=== PATIENT | female | born 1925 | race Caucasian/White ===

== ENCOUNTER 2016-02-27 10:43 | Outpatient (CLI) | payer MEDICARE | END 2016-02-27 10:44 | disposition home or self-care (01) | DX: I50.9 Heart failure, unspecified (principal); I51.7 Cardiomegaly; R60.9 Edema, unspecified ==

== ENCOUNTER 2016-09-05 00:59 | Outpatient (CLI) | payer MEDICARE | END 2016-09-05 01:00 | disposition critical access hospital (66) | LOC: EMS 00:59 | PROVIDERS: ATTEND Surgery | DX: Z03.89 Encounter for observation for other suspected diseases and conditions ruled out (principal); Z79.01 Long term (current) use of anticoagulants; W18.39XA Other fall on same level, initial encounter; Y92.098 Other place in other non-institutional residence as the place of occurrence of the external cause | CPT/HCPCS: A0425; A0429 ==

== ENCOUNTER 2016-09-05 01:14 | Inpatient (IN) | payer MEDICARE ==
[2016-09-05 02:19] LABS: BASOPHILS # (AUTO) 0.1 10^3/uL (0.0-0.1); BASOPHILS % (AUTO) 0.8 %; EOSINOPHILS # (AUTO) 0.2 10^3/uL (0.0-0.7); EOSINOPHILS % (AUTO) 2.5 %; HCT - HEMATOCRIT 33.1 % (37.0-47.0); HGB - HEMOGLOBIN 11.4 g/dL (12.0-16.0); LYMPHOCYTES # (AUTO) 0.7 10^3/uL (1.5-3.5); LYMPHOCYTES % (AUTO) 10.8 %; MEAN CORPUSCULAR HEMOGLOBIN 31.4 pg (27.0-31.0); MEAN CORPUSCULAR HGB CONC 34.5 g/dL (32.0-36.0); MEAN PLATELET VOLUME 7.8 fL (7.9-10.8); MONOCYTES # (AUTO) 0.6 10^3/uL (0.0-1.0); MONOCYTES % (AUTO) 9.3 %; NEUTROPHILS # (AUTO) 5.1 10^3/uL (1.5-6.6); NEUTROPHILS % (AUTO) 76.6 %; NUCLEATED RED BLOOD CELLS AUTO 0.1 /100WBC; RED BLOOD COUNT 3.64 10^6/uL (4.20-5.40); RED CELL DISTRIBUTION WIDTH 15.3 % (12.0-15.0); UNCORRECTED WHITE BLOOD COUNT 6.7 x10^3/uL; WHITE BLOOD COUNT 6.7 x10^3/uL (4.8-10.8)
--- NOTE | 2016-09-05 02:22 | CT Preliminary Report ---
Exam: CT Head W/O IMPRESSION: Generalized age-related cortical atrophic changes without evidence of acute intracranial abnormality. [facility] SITE ID: [id number]
--- NOTE | 2016-09-05 02:23 | XRAY Preliminary Report ---
Exam: XR Chest 1 View IMPRESSION: 1. Cardiomegaly and pulmonary vascular congestion. [facility] SITE ID: [id number]
--- NOTE | 2016-09-05 02:24 | CT Report ---
EXAM: CT HEAD EXAM DATE: 09/05/2016 01:48 AM. CLINICAL HISTORY: Fall on Pradaxa, headache. COMPARISON: 06/16/2015. TECHNIQUE: Multiaxial CT images were obtained from the foramen magnum to the vertex. IV contrast: Non e. Reformats: Coronal. In accordance with CT protocol optimization, one or more of the following dose reduction techniques w ere utilized for this exam: automated exposure control, adjustment of mA and/or KV based on patient s ize, or use of iterative reconstructive technique. FINDINGS: Parenchyma: No intraparenchymal hemorrhage. No evidence of mass, midline shift, or CT findings of acu te infarction. Wells-white differentiation is distinct. Extraaxial Spaces: Normal for age. No subdural or epidural collections identified. Ventricles: The ventricles and cortical sulci are enlarged, consistent with age-related tissue loss. Sinuses: Imaged paranasal sinuses, orbits, and mastoids show no significant abnormality. Bones: No evidence of fracture or calvarial defect. Other: Diffuse chronic microangiopathic white matter changes are evident. No change since the prior study. IMPRESSION: Generalized age-related cortical atrophic changes without evidence of acute intracranial abnormality. [facility] Referring Provider Line: [phone] SITE ID: [id number]
[2016-09-05 02:25] LABS: BILIRUBIN,URINE NEGATIVE (NEGATIVE)
--- NOTE | 2016-09-05 02:25 | XRAY Report ---
EXAM: CHEST RADIOGRAPHY EXAM DATE: 09/05/2016 01:41 AM. CLINICAL HISTORY: Congestive heart failure. Fell backwards. COMPARISON: 02/27/2016. TECHNIQUE: 1 view. FINDINGS: Lungs/Pleura: Pulmonary vascular congestion. No alveolar consolidation or pleural effusion. No pneumo thorax. Mediastinum: Mild cardiomegaly. Tortuous atherosclerotic aorta. Other: Implanted bipolar pacemaker on the left with leads in expected positions. Osteopenia. IMPRESSION: 1. Cardiomegaly and pulmonary vascular congestion. [facility] Referring Provider Line: [phone] SITE ID: [id number]
[2016-09-05 02:26] LABS: ALBUMIN/GLOBULIN RATIO 0.9 (1.0-2.2); CALCIUM 9.5 mg/dL (8.5-10.3); CREATININE 1.3 mg/dL (0.4-1.0); TOTAL PROTEIN 8.3 g/dL (6.7-8.2)
[2016-09-05 02:26] LABS: UA w/ MICROSCOPIC CHARGE YES
--- NOTE | 2016-09-05 02:26 | CT Preliminary Report ---
Exam: CT Cervical Spine W/O IMPRESSION: Degenerative changes in the cervical spine. No fracture is identified. [facility] SITE ID: [id number]
--- NOTE | 2016-09-05 02:28 | CT Report ---
EXAM: CT CERVICAL SPINE WITHOUT CONTRAST DATE: 09/05/2016 02:09 AM HISTORY: Fall with neck pain COMPARISONS: None. TECHNIQUE: Thin-section axial images were acquired of the cervical spine without contrast. Post-proce ssing: Coronal and sagittal reformats. Other: None. In accordance with CT protocol optimization, one or more of the following dose reduction techniques w ere utilized for this exam: automated exposure control, adjustment of mA and/or KV based on patient s ize, or use of iterative reconstructive technique. FINDINGS: Alignment: 2 mm of anterolisthesis at C4-C5 Bones: No fracture or bone lesion. Interspace Levels/Facets: C1-C2: Degenerative change anterior to the dens C2-C3: Moderate bilateral facet osteoarthritis C3-C4: Moderate bilateral facet osteoarthritis C4-C5: Moderate bilateral facet osteoarthritis C5-C6: Severe disk space narrowing. Endplate osteophyte mildly narrows the central canal. Severe bila teral foraminal stenosis. C6-C7: Severe disk space narrowing. C7-T1: Unremarkable. Musculature: Normal. No fatty atrophy. Other: Lung apices are clear. Pacemaker wires in the lower neck IMPRESSION: Degenerative changes in the cervical spine. No fracture is identified. [facility] Referring Provider Line: [phone] SITE ID: [id number]
[2016-09-05 02:40] LABS: UR CULTURE IF IND INDICATED; WBC,URINE 0-3 /HPF (0-5)
[2016-09-05] MEDS ORDERED: POTASSIUM CHLORIDE 20 MEQ TABLET PO STA (02:53)
[2016-09-05] MEDS ORDERED: FUROSEMIDE 20 MG/2 ML VIAL IVP STA (02:54)
[2016-09-05] MEDS ORDERED: POTASSIUM CHLORIDE 20 MEQ TABLET PO ONE (03:08)
[2016-09-05] MEDS ORDERED: FUROSEMIDE 40 MG/4 ML VIAL ONE (03:08)
[2016-09-05] MEDS ORDERED: ONDANSETRON 4 MG/2 ML VIAL IVP PRN (03:34)
[2016-09-05] MEDS ORDERED: SODIUM CHLORIDE FLUSH 0.9% 10 ML SYRINGE IVP PRN (03:34)
[2016-09-05] MEDS ORDERED: ACETAMINOPHEN 325 MG TABLET PO PRN (03:34)
[2016-09-05] MEDS ORDERED: ONDANSETRON ODT 4 MG TABLET TL PRN (03:34)
[2016-09-05] MEDS ORDERED: MAGNESIUM HYDROXIDE 2,400 MG/30 ML UDC PO PRN (03:43)
[2016-09-05] MEDS ORDERED: COLCHICINE 0.6 MG TABLET PO PRN (03:43)
--- NOTE | 2016-09-05 04:39 | ED Physician Documentation ---
History of Present Illness - Stated complaint Stated Complaint: GLF - Chief complaint Chief Complaint: General - History obtained from History obtained from: Patient - Additonal information Additional information: Patient is a pleasant 89-year-old female who currently resides at a local longterm. She is here after having a ground-level fall. The exact circumstances regarding the fall are unknown. She said she was in her normal state of health and said goodbye to family members. She closed the door and then found herself on the floor.Apparently she had a difficult time getting up and laid on the floor for a couple hours. The patient really has no recollection about what happened. She believes she may have fallen straight back but does not know whether she passed out or just had a mechanical fall. At this point in time she does complain of a headache and neck pain. She denies any preceding chest pain, shortness of breath, nausea, vomiting, constipation, diarrhea or lower urinary symptoms. Review of systems: For pertinent positive and negatives in the review of systems please see history of present illness. Otherwise all other systems have been reviewed and are negative. Dragon disclaimer: Parts of this medical record were created using voice recognition technology. Because of the inherent limitations of this system occasional same sounding word substitutions do occur and persist despite proofreading. Please read the document for context. Review of Systems Ten Systems: 10 systems reviewed and negative Constitutional: denies: Fever, Chills, Myalgias Eyes: denies: Loss of vision Cardiac: denies: Chest pain / pressure, Palpitations Respiratory: denies: Dyspnea, Cough GI: denies: Abdominal Pain, Vomiting : denies: Dysuria, Frequency, Hesitancy Musculoskeletal: reports: Neck pain, Back pain Neurologic: reports: Generalized weakness, Focal weakness, Numbness, Difficulty speaking PD PAST MEDICAL HISTORY - Past Medical History Cardiovascular: Congestive heart failure, High cholesterol, Coronary artery disease Respiratory: None Neuro: None GI: GERD : Renal insuffiency HEENT: None Psych: None Derm: None - Past Surgical History Past Surgical History: Yes Ortho: 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: 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 Cardiovascular: Coronary stent, Pacemaker - Present Medications Home Medications: Ambulatory Orders Medication Instructions Recorded Confirmed Dabigatran [Pradaxa] 75 mg PO BID 09/18/12 09/05/16 Furosemide [Lasix] 80 mg PO BID 09/18/12 09/05/16 Digoxin [Lanoxin] 125 mcg PO DAILY 06/16/15 09/05/16 HYDROcod/ACETAM 5/325 [[place] 5/325] 1 tab PO QID 06/16/15 09/05/16 Levothyroxine [Synthroid] 50 mcg PO QDAC 06/16/15 09/05/16 Ropinirole HCl 1 mg PO DAILY 06/16/15 09/05/16 Ropinirole HCl 2 mg PO DAILY 06/16/15 09/05/16 diltiaZEM CD [Cardizem Cd] 120 mg PO TID 06/16/15 09/05/16 hydrALAZINE [Apresoline] 25 mg PO QD 06/16/15 09/05/16 Acetaminophen 650 mg PO Q4H PRN 09/05/16 09/05/16 Calcium Carbonate/Vitamin D3 1 tab ORAL BID 09/05/16 09/05/16 [Calcium 500-Vit D3 200 Tablet] Cholecalciferol (Vitamin D3) 2,000 units ORAL BID 09/05/16 09/05/16 [Vitamin D3] Colchicine 0.6 mg PO BID PRN 09/05/16 09/05/16 Gabapentin 100 mg ORAL BID 09/05/16 09/05/16 Magnesium Hydroxide [Milk of 1,200 mg ORAL DAILY PRN 09/05/16 09/05/16 Magnesia] Metolazone 2.5 mg ORAL DAILY 09/05/16 09/05/16 Potassium Chloride [Klor-Con 10] 10 meq ORAL DAILY 09/05/16 09/05/16 - Allergies Allergies/Adverse Reactions: Allergies Allergy/AdvReac Type Severity Reaction Status Date / Time Sulfa (Sulfonamide Allergy Intermediate Nausea Verified 09/05/16 01:23 Antibiotics) - Social History Does the pt smoke?: No Smoking Status: Never smoker Does the pt drink ETOH?: No Does the pt have substance abuse?: No - Immunizations Immunizations are current?: No Immunizations: TDAP >10years/unknown - POLST Patient has POLST: No PD ED PE NORMAL - General General: Alert and oriented X 3, No acute distress, Well developed/nourished - HEENT HEENT: PERRL, EOMI, Ears normal, Pharynx benign, Other - Neck Neck: Supple, no meningeal sign, Other - Cardiac Cardiac: No gallop, No rub, Other (Irregularly irregular heart with soft blowing murmur) - Respiratory Respiratory: Other (Crackles at the bases bilaterally) - Abdomen Abdomen: Normal bowel sounds, Soft, Non tender, Non distended - Extremities Extremities: No deformity, No tenderness to palpate, Normal ROM s pain, No calf tenderness / cord, Other (Moderate edema bilateral lower extremities all the way up to the posterior thighs bilaterally) - Neuro Neuro: Alert and oriented X 3, dry heat room attendant 2-12 intact, No motor deficit, No sensory deficit Results - Vitals Vitals: Vital Signs - 24 hr 09/05/16 09/05/16 09/05/16 01:15 02:25 03:04 Temperature 36.5 C Heart Rate 92 83 92 Respiratory 16 16 25 H Rate Blood Pressure 113/60 119/72 129/85 H O2 Saturation 95 97 95 09/05/16 04:20 Temperature Heart Rate 105 H Respiratory 20 Rate Blood Pressure 110/79 O2 Saturation 93 Oxygen O2 Source Room air - Labs Labs: Laboratory Tests 09/05/16 09/05/16 09/05/16 02:04 02:04 02:04 WBC 6.7 RBC 3.64 L Hgb 11.4 L Hct 33.1 L MCV 91.0 MCH 31.4 H MCHC 34.5 RDW 15.3 H Plt Count 166 MPV 7.8 L Neut # 5.1 Lymph # 0.7 L [place] # 0.6 Eos # 0.2 Baso # 0.1 Absolute Nucleated RBC 0.00 Nucleated RBCs 0.1 Sodium 131 L Potassium 3.0 L Chloride 89 L Carbon Dioxide 31 Anion Gap 11.0 BUN 70 H Creatinine 1.3 H Estimated GFR (MDRD) 39 L Glucose 108 H Calcium 9.5 Total Bilirubin 1.0 AST 34 ALT 26 Alkaline Phosphatase 235 H Troponin I 0.09 B-Natriuretic Peptide Total Protein 8.3 H Albumin 3.9 Globulin 4.4 H Albumin/Globulin Ratio 0.9 L Lipase 37 Urine Color Urine Clarity Urine pH Ur Specific [place] Urine Protein Urine Glucose (UA) Urine Ketones Urine Occult Blood Urine Nitrite Urine Bilirubin Urine Urobilinogen Ur Leukocyte Esterase Urine RBC Urine WBC Ur Squamous Epith Cells Urine Bacteria Ur Microscopic Review Urine Culture Comments Last Dose Date Last Dose Time Digoxin 09/05/16 09/05/16 09/05/16 02:04 02:04 02:15 WBC RBC Hgb Hct MCV MCH MCHC RDW Plt Count MPV Neut # Lymph # [place] # Eos # Baso # Absolute Nucleated RBC Nucleated RBCs Sodium Potassium Chloride Carbon Dioxide Anion Gap BUN Creatinine Estimated GFR (MDRD) Glucose Calcium Total Bilirubin AST ALT Alkaline Phosphatase Troponin I B-Natriuretic Peptide 638 H Total Protein Albumin Globulin Albumin/Globulin Ratio Lipase Urine Color YELLOW Urine Clarity HAZY Urine pH 7.0 Ur Specific [place] 1.010 Urine Protein NEGATIVE Urine Glucose (UA) NEGATIVE Urine Ketones NEGATIVE Urine Occult Blood SMALL H Urine Nitrite POSITIVE H Urine Bilirubin NEGATIVE Urine Urobilinogen 0.2 (NORMAL) Ur Leukocyte Esterase NEGATIVE Urine RBC 0-5 Urine WBC 0-3 Ur Squamous Epith Cells FEW Squamous Urine Bacteria Moderate H Ur Microscopic Review INDICATED Urine Culture Comments INDICATED Last Dose Date 09/04/16 Last Dose Time 0800 Digoxin 0.7 PD MEDICAL DECISION MAKING - ED course Complexity details: reviewed old records, reviewed results, re-evaluated patient , considered differential, d/w patient, d/w device sales consultant ED course: Patient is a pleasant 89-year-old female who is a resident of the local longterm. The patient fell tonight it is unclear exactly what happened and whether this might have been syncope versus mechanical fall. From an injury standpoint the patient really does not have any significant findings of injury and her head but did have mild neck tenderness. For this reason a CT scan of the head and neck were performed. The CT scan of head shows age-related changes. The CT scan of the neck shows arthritis but no evidence of bony fracture dislocation. Clinically on evaluation the patient appear to be in mild decompensated congestive heart failure. She had moderate pedal edema up into the posterior thighs bilaterally and obvious JVD that was noticeable on physical exam. She also crackles on auscultation of her lungs. Chest x-ray shows moderate to severe cardiomegaly with a hint of pulmonary vascular congestion. EKG on this patient demonstrates atrial fibrillation at 82 bpm the QRS and QT intervals are normal. There is no obvious ST segment elevation, depression or T-wave inversion.There are a few discretePVCs present. Blood work on this patient shows elevation of the BUN to creatinine ratio at 70 and 1.3. Her BNP is mildly elevated and her potassium is 3.0. Patient's CBC and urinalysis are normal. This patient clinically is in mild decompensated congestive heart failure and this finding is reflected radiographically and in her laboratory values. She is given 40 mg of potassium orally and also a small dose of Lasix. The case was discussed with the hospitalist service who came down promptly to evaluate the patient for admission. We felt that this patient might benefit from a little gentle diuresis and potassium repletion. Disposition: Admission to the hospital Clinical impression: 1. Fall-mechanical versus syncope 2. Acute decompensated congestive heart failure 3. Hypokalemia 4. Chronic atrial fibrillation Departure - Departure Disposition: [facility] DC/Xfer
--- NOTE | 2016-09-05 05:16 | HISTORY & PHYSICAL EXAMINATION ---
Chief Complaint - Chief Complaint Chief Complaint: Syncope, acute exacerbation heart failure Chest Pain Admission HPI - Admitted From Admitted from: ED - History Obtained From Records Reviewed: Old records reviewed History obtained from: Patient, Other (Records) Exam limitations: Other (Impaired memory) - History of Present Illness HPI Comment/Other: 89-year-old, white female presenting to the emergency department by EMS tonight for an unwitnessed syncopal episode. She has chronic atrial fibrillation and is anticoagulated with pradaxa. She reports saying goodbye to her children, closing the door, turning around and then waking up lying on the floor. She was able to use her fall alert necklace to notify staff at [facility]. She denies preceding chest pain, shortness of breath, dizziness, diaphoresis, nausea or vomiting. Her recollection of the event is vague. In the ED a Head and Neck CT is completed and negative. She has no complaints of new pain. She does have chronic heart failure and she has noticed increased swelling to her lower extremities over the past few weeks but has not seen her PCP. Chest x-ray impression per radiologist states cardiomegaly with pulmonary vascular congestion. She received 40 mg IV lasix in the ED for acute exacerbation of her chronic right sided heart failure. Echo completed 06/15/16 showed ejection fraction 60%. 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: Miscarriage(s) : positive: Incontinence, Renal insuffiency HEENT: positive: None Psych: positive: None Musculoskeletal: positive: Gout (Right great toe) Derm: positive: Other (Yeast infection (groin)) MRSA Hx?: No - Past Surgical History General: positive: Appendectomy Ortho: positive: Spine surgery /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 Meds/Allgy - Home Medications Home Medications: Ambulatory Orders Medication Instructions Recorded Confirmed Dabigatran [Pradaxa] 75 mg PO BID 09/18/12 09/05/16 Furosemide [Lasix] 80 mg PO BID 09/18/12 09/05/16 Digoxin [Lanoxin] 125 mcg PO DAILY 06/16/15 09/05/16 HYDROcod/ACETAM 5/325 [[place] 5/325] 1 tab PO QID 06/16/15 09/05/16 Levothyroxine [Synthroid] 50 mcg PO QDAC 06/16/15 09/05/16 Ropinirole HCl 1 mg PO DAILY 06/16/15 09/05/16 Ropinirole HCl 2 mg PO DAILY 06/16/15 09/05/16 diltiaZEM CD [Cardizem Cd] 120 mg PO TID 06/16/15 09/05/16 hydrALAZINE [Apresoline] 25 mg PO QD 06/16/15 09/05/16 Acetaminophen 650 mg PO Q4H PRN 09/05/16 09/05/16 Calcium Carbonate/Vitamin D3 1 tab ORAL BID 09/05/16 09/05/16 [Calcium 500-Vit D3 200 Tablet] Cholecalciferol (Vitamin D3) 2,000 units ORAL BID 09/05/16 09/05/16 [Vitamin D3] Colchicine 0.6 mg PO BID PRN 09/05/16 09/05/16 Gabapentin 100 mg ORAL BID 09/05/16 09/05/16 Magnesium Hydroxide [Milk of 1,200 mg ORAL DAILY PRN 09/05/16 09/05/16 Magnesia] Metolazone 2.5 mg ORAL DAILY 09/05/16 09/05/16 Potassium Chloride [Klor-Con 10] 10 meq ORAL DAILY 09/05/16 09/05/16 - Allergies Allergies/Adverse Reactions: Allergies Allergy/AdvReac Type Severity Reaction Status Date / Time Sulfa (Sulfonamide Allergy Intermediate Nausea Verified 09/05/16 01:23 Antibiotics) Review of Systems - Constitutional Constitutional: denies: Fatigue, Fever, Chills, Diaphoresis - Eyes Eyes: reports: Corrective lenses (at home) - Ears, Nose & Throat Ears, Nose & Throat: reports: Dentures (upper and lower) - Cardiovascular Cariovascular: reports: Irregular heart rate, Edema (Increased to lower extremities), Syncope, Exertional dyspnea. denies: Chest pain, Orthopnea - Respiratory Respiratory: reports: Cough (nonproductive), SOB with exertion - Genitourinary Genitourinary: reports: Incontinence - Musculoskeletal Musculoskeletal: reports: Gout - Integumentary Integumentary: reports: Pruritis - Neurological Neurological: reports: Memory problems - All Other Systems All Other Systems: reports: Reviewed and negative Exam - Vital Signs Reviewed Vital Signs: Yes Vital Signs: Vital Signs x48h Pulse Resp BP Pulse Ox 09/05/16 04:20 105 H 20 110/79 93 - Physical Exam General Appearance: positive: Alert, Other (Mild tachypnea with activity in the stretcher.) Eyes Bilateral: positive: Normal inspection ENT: positive: ENT inspection nml, Pharynx nml Neck: positive: Trachea midline (JVD present. No neck tenderness.) Respiratory: positive: Chest non-tender, Other (Diminished to bilateral lower lung brady with faint crackles in right lower field. Increased respiratory rate with activity.) Cardiovascular: positive: Irregularly irregular, PMI displaced laterally, JVD present, Decreased pulse(s) Peripheral Pulses: positive: 1+ Abdomen: positive: Non-tender, Nml bowel sounds, Hepatomegaly, Other (Distended) Back: positive: Other (Scratch loza to lower back and right buttocks.) Skin: positive: Warm, Dry Extremities: positive: Pedal edema (3+ pitting edema from ankle to knee bilaterally. Non-pitting edema from knee to mid-thigh.), Other ([place] discoloration to bilateral LE ankle to mid-[place].) Neurologic/Psychiatric: positive: Mood/affect nml, Disoriented to time, Weakness Results - Lab Results Fish Bones: 09/05/16 02:04 09/05/16 02:04 CP/CHF Plan - Echo Plan to order an echo?: Yes - Plan Patient Problems: All Active Problems Atrial fibrillation, chronic (Acute) Chronic renal insufficiency (Acute) Chronic right-sided congestive heart failure (Acute) Syncopal episodes (Acute) Urinary tract infection (Acute) Cellulitis of both lower extremities (Acute) Fluid overload (Acute) Gout (Acute) Hypokalemia (Acute) Intractable pain (Acute) Iron deficiency anemia (Acute) Pacemaker (Acute) Sepsis (Acute)
[2016-09-05] MEDS: CIPROFLOXACIN 250 MG TABLET PO SCH ×2 (05:31→21:30)
[2016-09-05] MEDS: SODIUM CHLORIDE FLUSH 0.9% 10 ML SYRINGE IVP SCH ×3 (05:46→21:13)
[2016-09-05] MEDS: hydrALAZINE 25 MG TABLET PO SCH (05:46)
--- NOTE | 2016-09-05 06:38 | HISTORY & PHYSICAL EXAMINATION ---
Chief Complaint - Chief Complaint Chief Complaint: Syncope History of Present Illness - Admitted From Admitted From:: Emergency Department - History Obtained From Records Reviewed: [facility] History obtained from: Patient Exam Limitations: Memory - History of Present Illness HPI Comment/Other: 89-year-old, white female presenting to the emergency department by EMS tonight for an unwitnessed syncopal episode. She has chronic atrial fibrillation and is anticoagulated with pradaxa. She reports saying goodbye to her children, closing the door, turning around and then waking up lying on the floor. She was able to use her fall alert necklace to notify staff at [facility]. She denies preceding chest pain, shortness of breath, dizziness, diaphoresis, nausea or vomiting. Her recollection of the event is vague. In the ED a Head and Neck CT is completed and negative. She has no complaints of new pain. She does have chronic heart failure and she has noticed increased swelling to her lower extremities over the past few weeks but has not seen her PCP. Chest x-ray impression per radiologist states cardiomegaly with pulmonary vascular congestion. She received 40 mg IV lasix in the ED for acute exacerbation of her chronic right sided heart failure. Echo completed 06/15/16 showed ejection fraction 60%. The ED physician requested admission due to the acute exacerbation. Review of Systems - Constitutional Constitutional: denies: Fatigue, Fever, Chills, Malaise, Diaphoresis - Eyes Eyes: reports: Corrective lenses (at home) - Ears, Nose & Throat Ears, Nose & Throat: reports: Dentures (upper and lower) - Cardiovascular Cariovascular: reports: Irregular heart rate, Edema (lower extremities.), Syncope, Exertional dyspnea. denies: Palpitations, Chest pain, Lightheadedness , Orthopnea - Respiratory Respiratory: reports: Cough (non productive). denies: Sputum production, Orthopnea, SOB at rest - Gastrointestinal Gastrointestinal: denies: Abdominal pain, Constipation, Diarrhea, Black stools, Bloody stools, Nausea, Vomiting - Genitourinary Genitourinary: reports: Incontinence - Musculoskeletal Musculoskeletal: reports: Muscle weakness, Gout (Right first toe.) - Integumentary Integumentary: reports: Pruritis - Neurological Neurological: reports: Memory problems (short-term) - All Other Systems All Other Systems: reports: Reviewed and negative History - Past Medical History Cardiovascular: reports: Congestive heart failure (Preserved Ejection Fraction, Right sided ), High cholesterol, Coronary artery disease, Atrial fibrillation ( rate controlled, anticoagulated) Respiratory: reports: None Neuro: reports: None, Other (Restless leg syndrome) Endocrine/Autoimmune: reports: HyPOthyroidism GI: reports: GERD, Hemorrhoids 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 EXECUTIVE ASSISTANT: reports: Miscarriage(s) : reports: Incontinence, Renal insuffiency HEENT: reports: None Psych: reports: None Musculoskeletal: reports: Gout (Right great toe) Derm: reports: Other (Yeast infection (groin)) MRSA Hx?: No - Past Surgical History General: reports: Appendectomy Ortho: reports: Spine surgery /BILINGUAL EXECUTIVE ASSISTANT: reports: 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 Cardiovascular: reports: Coronary stent, Pacemaker - Family & Social History Family History: Mother: (age 92), Father: , [place], Sister: Alive and Well (daughter - hepatitis C), Brother: Alive and Well, Other family: Alive and Well Living arrangement: Assisted living (Formerly [facility]) Living Situation: With caregiver(s) Social History Notes: Patient has lived in an assisted care facility for the past year, she lives independently in her room with assistance for her medications and all meals. She has been x 2 years. Her 2 daughters and son live on [facility], her children and grandchildren come to visit her occasionally. She affiliated with the [email or web address] but has been unable to attend since moving to [facility]. 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 - Substance History Use: Uses substance without health or social issues: NONE Abuse: Recurrent use of substance despite neg consequences: NONE Dependence: Experiences withdrawal or developed tolerances: NONE - POLST Patient has POLST: No POLST Status: DNR Meds/Allgy - Home Medications Home Medications: Ambulatory Orders Medication Instructions Recorded Confirmed Dabigatran [Pradaxa] 75 mg PO BID 09/18/12 09/05/16 Furosemide [Lasix] 80 mg PO BID 09/18/12 09/05/16 Digoxin [Lanoxin] 125 mcg PO DAILY 06/16/15 09/05/16 HYDROcod/ACETAM 5/325 [[place] 5/325] 1 - 2 tab PO Q4H PRN 06/16/15 09/05/16 Levothyroxine [Synthroid] 50 mcg PO QDAC 06/16/15 09/05/16 Ropinirole HCl 1 mg PO DAILY 06/16/15 09/05/16 Ropinirole HCl 2 mg PO QPM 06/16/15 09/05/16 hydrALAZINE [Apresoline] 25 mg PO QD 06/16/15 09/05/16 Acetaminophen 650 mg PO Q4H PRN 09/05/16 09/05/16 Calcium Carbonate/Vitamin D3 1 tab ORAL BID 09/05/16 09/05/16 [Calcium 500-Vit D3 200 Tablet] Chlorhexidine Gluconate 15 ml MM DAILY 09/05/16 09/05/16 Cholecalciferol (Vitamin D3) 2,000 units ORAL BID 09/05/16 09/05/16 [Vitamin D3] Colchicine 0.6 mg PO BID PRN 09/05/16 09/05/16 Diltiazem HCl 120 mg PO TID 09/05/16 09/05/16 Gabapentin 100 mg ORAL BID 09/05/16 09/05/16 Magnesium Hydroxide [Milk of 1,200 mg ORAL DAILY PRN 09/05/16 09/05/16 Magnesia] Metolazone 2.5 mg ORAL DAILY 09/05/16 09/05/16 Potassium Chloride [Klor-Con 10] 10 meq ORAL DAILY 09/05/16 09/05/16 - Allergies Allergies/Adverse Reactions: Allergies Allergy/AdvReac Type Severity Reaction Status Date / Time Sulfa (Sulfonamide Allergy Intermediate Nausea Verified 09/05/16 01:23 Antibiotics) Exam - Vital Signs Reviewed Vital Signs: Yes Vital Signs: Vital Signs x48h Temp Pulse Pulse Resp BP BP Pulse Ox 09/05/16 05:26 36.7 C 103 H 16 111/73 95 09/05/16 04:20 105 H 20 110/79 93 - Physical Exam General Appearance: positive: No acute distress, Alert Eyes Bilateral: positive: Normal inspection, PERRL ENT: positive: ENT inspection nml Neck: positive: Trachea midline Respiratory: positive: Chest non-tender, Other (Diminished breath sounds to lower lung brady bilaterally, fine crackles to right lower field.) Cardiovascular: positive: Irregularly irregular, PMI displaced laterally, JVD present, Decreased pulse(s) Peripheral Pulses: positive: 1+ (Radial and pedal) Abdomen: positive: Non-tender, Nml bowel sounds, Hepatomegaly, Other (edematous/ distended.) Back: positive: Other (Scratches to lumbar region and right buttocks.) Skin: positive: Color nml, Warm, Dry Extremities: positive: Pedal edema (2+ pitting edema ankle-knee. Non-pitting edema from knee-mid thigh.) Neurologic/Psychiatric: positive: Motor nml, Sensation nml, Mood/affect nml, Disoriented to time Conclusion/Plan - Problem List (1) Syncopal episodes Conclusion/Plan: Unwitnessed syncopal episode, patient is unable to recall specifics of the event. Denies prodrome, chest pain, dark stools, or neuro deficits. Head and Neck CT negative. Diferential considered is Aortic stenosis but no history on previous ECHO and no harsh systolic murmur, arrhythmia for which tele is ordered , orthostatic syncope but history lends more to sudden syncope not symptoms of orthostasis. Troponin was negative. * Echocardiogram 09/05/2016 * Telemetry * Monitor daily CBC, BMP. Qualifiers: Syncope type: unspecified Qualified Code(s): R55 - Syncope and collapse (2) Chronic right-sided congestive heart failure Conclusion/Plan: Acute exacerbation of chronic right-sided heart failure, systolic; last echocardiogram 05/2015 with LVEF 60%. * Echocardiogram 09/05/2016. * Diurese - 40 mg IV lasix twice daily. * Daily BtNP * Daily weights, intake and output * Low sodium diet (2 gm) (3) Urinary tract infection Conclusion/Plan: Uncomplicated urinary tract infection. * Empirically treat with ciprofloxacin 250 mg orally twice daily. * Await pending culture and sensitivity from urine specimen and adjust therapy as indicated. Qualifiers: Urinary tract infection type: acute cystitis Hematuria presence: with hematuria Qualified Code(s): N30.01 - Acute cystitis with hematuria (4) Hypokalemia Conclusion/Plan: Attributed to daily furosemide use. * 40 meq KCl orally once 09/05/16. * Continue home potassium: 10 meq oral daily. * Daily BMP. (5) Atrial fibrillation, chronic Conclusion/Plan: Rate controlled, anticoagulated with Dabigatran (Pradaxa). * Telemetry * Continue home medications. (6) Chronic renal insufficiency Conclusion/Plan: Chronic stable renal insufficiency. * Daily BMP to monitor status. Qualifiers: Chronic kidney disease stage: stage 3 (moderate) Qualified Code(s): N18.3 - Chronic kidney disease, stage 3 (moderate) - Lab Results Fish Bones: 09/05/16 02:04 09/05/16 02:04 Issues/Core Measures - Anticipated LOS Anticipated Stay Length: 2 or more midnights - DVT/VTE - Prophylaxis VTE/DVT Device ordered at admit?: Yes VTE/DVT Prophylaxis med ordered at admit?: No Not Ordered - Medical Reason: Not indicated (anticoagulated.)
[2016-09-05] MEDS: LEVOTHYROXINE 25 MCG TABLET PO SCH (06:41)
[2016-09-05] MEDS: diltiaZEM CD 120 MG CAPSULE PO SCH ×3 (06:41→21:29)
[2016-09-05] MEDS ORDERED: POTASSIUM CHLORIDE 10 MEQ CAPSULE PO SCH (08:00)
[2016-09-05] MEDS ORDERED: FUROSEMIDE 40 MG/4 ML VIAL IVP SCH (09:00)
[2016-09-05 09:13] LABS: THYROID STIMULATING HORMONE 3.35 uIU/mL (0.34-5.60)
[2016-09-05] MEDS: rOPINIRole 1 MG TABLET PO SCH (10:03)
[2016-09-05] MEDS: HYDROcod/ACETAM 5/325 MG TABLET PO PRN ×2 (10:04→14:12)
[2016-09-05] MEDS: GABAPENTIN 100 MG CAPSULE PO SCH ×2 (10:04→21:29)
[2016-09-05] MEDS: DIGOXIN 125 MCG TABLET PO SCH (10:04)
[2016-09-05] MEDS: POLYETHYLENE GLYCOL 3350 17 GM PACKET PO SCH (10:05)
[2016-09-05] MEDS: DABIGATRAN 75 MG CAPSULE PO SCH ×2 (10:07→21:26)
[2016-09-05] MEDS ORDERED: LIDOCAINE PATCH 5% TOP PRN (14:18)
--- NOTE | 2016-09-05 14:25 | PROVIDER PROGRESS NOTE ---
Subjective - Prog Note Date Prog Note Date: 09/05/16 (followup for syncope and collapse) Prog Note Time: 14:22 - Subjective Pt reports feeling: Improved, No change Subjective: Patient was seen at bedside. She is up and ambulating with PT with walker. She is able to move with assist. She denies dizziness or lightheadedness. No nausea or vomiting. no chest pain or shortness of breath Current Medications - Current Medications Current Medications: Patient History Medication Instructions Recorded Confirmed Dabigatran [Pradaxa] 75 mg PO BID 09/18/12 09/05/16 Furosemide [Lasix] 80 mg PO BID 09/18/12 09/05/16 Digoxin [Lanoxin] 125 mcg PO DAILY 06/16/15 09/05/16 HYDROcod/ACETAM 5/325 [[place] 5/325] 1 - 2 tab PO Q4H PRN 06/16/15 09/05/16 Levothyroxine [Synthroid] 50 mcg PO QDAC 06/16/15 09/05/16 Ropinirole HCl 1 mg PO DAILY 06/16/15 09/05/16 Ropinirole HCl 2 mg PO QPM 06/16/15 09/05/16 hydrALAZINE [Apresoline] 25 mg PO QD 06/16/15 09/05/16 Acetaminophen 650 mg PO Q4H PRN 09/05/16 09/05/16 Calcium Carbonate/Vitamin D3 1 tab ORAL BID 09/05/16 09/05/16 [Calcium 500-Vit D3 200 Tablet] Chlorhexidine Gluconate 15 ml MM DAILY 09/05/16 09/05/16 Cholecalciferol (Vitamin D3) 2,000 units ORAL BID 09/05/16 09/05/16 [Vitamin D3] Colchicine 0.6 mg PO BID PRN 09/05/16 09/05/16 Diltiazem HCl 120 mg PO TID 09/05/16 09/05/16 Gabapentin 100 mg ORAL BID 09/05/16 09/05/16 Magnesium Hydroxide [Milk of 1,200 mg ORAL DAILY PRN 09/05/16 09/05/16 Magnesia] Metolazone 2.5 mg ORAL DAILY 09/05/16 09/05/16 Potassium Chloride [Klor-Con 10] 10 meq ORAL DAILY 09/05/16 09/05/16 Objective - Vital Signs/Intake & Output Reviewed Vital Signs: Yes Vital Signs: Vital Signs x48h Temp Pulse Pulse Resp BP BP Pulse Ox 09/05/16 13:29 36.3 C L 100 18 95/54 L 96 09/05/16 12:05 68 102/65 09/05/16 08:17 36.7 C 93 22 102/65 95 Pulse Ox 09/05/16 13:29 09/05/16 12:05 95 09/05/16 08:17 Intake & Output: Intake & Output 09/02/16 09/03/16 09/04/16 09/05/16 23:59 23:59 23:59 23:59 Intake Total 900 Balance 900 - Objective General Appearance: positive: No acute distress, Alert Eyes Bilateral: positive: Normal inspection, PERRL ENT: positive: ENT inspection nml, Pharynx nml, No signs of dehydration Neck: positive: Thyroid nml, No JVD, Trachea midline Respiratory: positive: No respiratory distress, Breath sounds nml Cardiovascular: positive: Regular rate & rhythm, No murmur, No gallop. negative : JVD present Abdomen: positive: Non-tender, No distention. negative: Guarding, Rebound Back: positive: Nml inspection. negative: CVA tenderness (R), CVA tenderness (L ) Skin: positive: Color nml, No rash, Warm, Dry Extremities: positive: Full ROM. negative: Calf tenderness, Joint swelling, Kimberley's sign/cords Neurologic/Psychiatric: positive: Oriented x3, Motor nml, Sensation nml, Mood/ affect nml - Lab Results Fish Bones: 09/05/16 02:04 09/05/16 02:04 Other Labs: Abnormal Lab Results 09/05/16 09/05/16 09/05/16 02:04 02:04 02:04 RBC 3.64 10^6/uL L 10^6/uL (4.20-5.40) Hgb 11.4 g/dL L g/dL (12.0-16.0) Hct 33.1 % L % (37.0-47.0) MCH 31.4 pg H pg (27.0-31.0) RDW 15.3 % H % (12.0-15.0) MPV 7.8 fL L fL (7.9-10.8) Lymph # 0.7 10^3/uL L 10^3/uL (1.5-3.5) Sodium 131 mmol/L L mmol/L (135-145) Potassium 3.0 mmol/L L mmol/L (3.5-5.0) Chloride 89 mmol/L L mmol/L (101-111) BUN 70 mg/dL H mg/dL (6-20) Creatinine 1.3 mg/dL H mg/dL (0.4-1.0) Estimated GFR (MDRD) 39 L (>89) Glucose 108 mg/dL H mg/dL (70-100) Alkaline Phosphatase 235 IU/L H IU/L (42-121) B-Natriuretic Peptide 638 pg/mL H pg/mL (5-100) Total Protein 8.3 g/dL H g/dL (6.7-8.2) Globulin 4.4 g/dL H g/dL (2.1-4.2) Albumin/Globulin Ratio 0.9 L (1.0-2.2) Urine Occult Blood Urine Nitrite Urine Bacteria 09/05/16 02:15 RBC Hgb Hct MCH RDW MPV Lymph # Sodium Potassium Chloride BUN Creatinine Estimated GFR (MDRD) Glucose Alkaline Phosphatase B-Natriuretic Peptide Total Protein Globulin Albumin/Globulin Ratio Urine Occult Blood SMALL H (NEGATIVE) Urine Nitrite POSITIVE H (NEGATIVE) Urine Bacteria Moderate /HPF H /HPF (None Seen) Assessment/Plan - Problem List (1) Chronic right-sided congestive heart failure Impression: chronic with acute exacerbation. continue with lasix and monitor potassium levels daily. continue to monitor lung sounds. encourage ambulation and elevate extremities when sitting. continue with blood pressure medications from home. echocardiogram is pending (2) Urinary tract infection Impression: pending for bacterial source with culture. Qualifiers: Urinary tract infection type: acute cystitis Hematuria presence: with hematuria Qualified Code(s): N30.01 - Acute cystitis with hematuria (3) Syncope and collapse Impression: acute. echo is pending. fall precautions. PT evaluation and assistance. monitor and replace electrolytes. telemetry monitoring. (4) Hypokalemia Impression: acute secondary to loss from diuretic usage. continue to monitor electrolytes and replace. potassium 40meq given orally.
[2016-09-05] MEDS ORDERED: NS W/20 MEQ KCL 1,000 ML IV SCH ×2 (17:00)
[2016-09-05] MEDS ORDERED: rOPINIRole 1 MG TABLET PO SCH (21:00)
[2016-09-06] MEDS: HYDROcod/ACETAM 5/325 MG TABLET PO PRN (00:29)
[2016-09-06] MEDS: hydrALAZINE 25 MG TABLET PO SCH (05:28)
[2016-09-06] MEDS: SODIUM CHLORIDE FLUSH 0.9% 10 ML SYRINGE IVP SCH (05:54)
[2016-09-06 06:29] LABS: BASOPHILS # (AUTO) 0.1 10^3/uL (0.0-0.1); BASOPHILS % (AUTO) 0.9 %; EOSINOPHILS # (AUTO) 0.2 10^3/uL (0.0-0.7); EOSINOPHILS % (AUTO) 3.6 %; HCT - HEMATOCRIT 33.1 % (37.0-47.0); HGB - HEMOGLOBIN 11.2 g/dL (12.0-16.0); LYMPHOCYTES # (AUTO) 0.8 10^3/uL (1.5-3.5); LYMPHOCYTES % (AUTO) 13.8 %; MEAN CORPUSCULAR HEMOGLOBIN 31.5 pg (27.0-31.0); MEAN CORPUSCULAR HGB CONC 33.8 g/dL (32.0-36.0); MEAN CORPUSCULAR VOLUME 93.2 fL (81.0-99.0); MEAN PLATELET VOLUME 7.4 fL (7.9-10.8); MONOCYTES # (AUTO) 0.6 10^3/uL (0.0-1.0); NEUTROPHILS # (AUTO) 4.1 10^3/uL (1.5-6.6); NEUTROPHILS % (AUTO) 71.7 %; RED BLOOD COUNT 3.55 10^6/uL (4.20-5.40); RED CELL DISTRIBUTION WIDTH 15.6 % (12.0-15.0); UNCORRECTED WHITE BLOOD COUNT 5.7 x10^3/uL; WHITE BLOOD COUNT 5.7 x10^3/uL (4.8-10.8)
[2016-09-06] MEDS: LEVOTHYROXINE 25 MCG TABLET PO SCH (06:33)
[2016-09-06] MEDS: diltiaZEM CD 120 MG CAPSULE PO SCH (06:33)
[2016-09-06 06:37] LABS: CALCIUM 9.2 mg/dL (8.5-10.3); MAGNESIUM 1.8 mg/dL (1.7-2.8); POTASSIUM 3.4 mmol/L (3.5-5.0)
[2016-09-06] MEDS ORDERED: MAGNESIUM SULFATE 2 GRAM 50 ML IV ONE (07:44)
--- NOTE | 2016-09-06 07:50 | Discharge Plan ---
Discharge Plan Disposition: Home Health Service Condition: Good Prescriptions: Ciprofloxacin [Cipro] 250 mg PO BID #8 tablet Diet: Cardiac Activity Restrictions: Activity as Tolerated Shower Restrictions: No Driving Restrictions: No Assistance Devices: Walker, Cane Weight Bearing: Full Weight Instruction Topics: Restless Legs Syndrome What Do Additional Instructions or Follow Up instructions: You were admitted for worsening congestive heart failure and mild dehydration. You need to continue to take lasix for the swelling in your legs. Keep legs up when sitting. DEWAYNE hose should be worn throughout the day. your lasix has been changed to 40mg twice a day. you had mild dehydration at admission probably related to the fluid and electrolyte depletion. your potassium and magnesium levels improved with replacement treatment. your leg pains are probably related to the low potassium caused from the lasix therapy. Please continue to take all home medication as prescribed. You have been given prescription for Urinary tract infection. Take antibiotic till gone. Continue to follow your regular diet at home. Drink several glasses of water throughout the day. Continue to get plenty of exercise including walking throughout the day. take rest breaks as needed Return to the ER if symptoms should worsen or you have chest pain or shortness of breath. Follow-Up Care: Home Health - PT, Home Health - OT No Smoking: If you smoke, Please STOP! Call for help. Follow-up with: Alf Ruth MD [Provider Admit Priv/Credential] -
[2016-09-06] MEDS ORDERED: POTASSIUM CHLORIDE 10 MEQ CAPSULE PO SCH (07:57)
--- NOTE | 2016-09-06 08:04 | DISCHARGE SUMMARY ---
"Discharge Summary Admit Date: 09/05/16 Discharge Date: 09/06/16 Discharging Provider: Keturah Barajas APRN Primary Care Provider: Alf Ruth MD Code Status: Do Not Attempt Resuscitation Condition at Discharge: Good Discharge Disposition: Home Health Service - ALLERGIES Allergies/Adverse Reactions: Allergies Allergy/AdvReac Type Severity Reaction Status Date / Time Sulfa (Sulfonamide Allergy Intermediate Nausea Verified 09/05/16 01:23 Antibiotics) - MEDICATIONS Home Medications: Ambulatory Orders Medication Instructions Recorded Confirmed Dabigatran [Pradaxa] 75 mg PO BID 09/18/12 09/05/16 Digoxin [Lanoxin] 125 mcg PO DAILY 06/16/15 09/05/16 HYDROcod/ACETAM 5/325 [[place] 5/325] 1 - 2 tab PO Q4H PRN 06/16/15 09/05/16 Levothyroxine [Synthroid] 50 mcg PO QDAC 06/16/15 09/05/16 Ropinirole HCl 1 mg PO DAILY 06/16/15 09/05/16 Ropinirole HCl 2 mg PO QPM 06/16/15 09/05/16 hydrALAZINE [Apresoline] 25 mg PO QD 06/16/15 09/05/16 Acetaminophen 650 mg PO Q4H PRN 09/05/16 09/05/16 Calcium Carbonate/Vitamin D3 1 tab ORAL BID 09/05/16 09/05/16 [Calcium 500-Vit D3 200 Tablet] Chlorhexidine Gluconate 15 ml MM DAILY 09/05/16 09/05/16 Cholecalciferol (Vitamin D3) 2,000 units ORAL BID 09/05/16 09/05/16 [Vitamin D3] Colchicine 0.6 mg PO BID PRN 09/05/16 09/05/16 Diltiazem HCl 120 mg PO TID 09/05/16 09/05/16 Gabapentin 100 mg ORAL BID 09/05/16 09/05/16 Magnesium Hydroxide [Milk of 1,200 mg ORAL DAILY PRN 09/05/16 09/05/16 Magnesia] Metolazone 2.5 mg ORAL DAILY 09/05/16 09/05/16 Ciprofloxacin [Cipro] 250 mg PO BID #8 tablet 09/06/16 Furosemide [Lasix] 40 mg PO BID #0 09/06/16 09/05/16 Home Medications Other | Comments: Lasix was changed to 40mg PO twice a day Cipro was given for UTI Potassium was changed from 10meq to 20meq for leg pain and hypokalemia - PHYSICAL EXAM AT DISCHARGE General Appearance: positive: No acute distress, Alert Eyes Bilateral: positive: Normal inspection, PERRL ENT: positive: ENT inspection nml, Pharynx nml, No signs of dehydration Neck: positive: Nml inspection, Thyroid nml, No JVD, Trachea midline Respiratory: positive: No respiratory distress, Breath sounds nml Cardiovascular: positive: No murmur, No gallop Back: negative: CVA tenderness (R), CVA tenderness (L) Skin: positive: Color nml, Warm, Dry Extremities: positive: Full ROM Neurologic/Psychiatric: positive: Motor nml, Sensation nml, Mood/affect nml - LABS Result Diagrams: 09/06/16 06:10 09/06/16 06:10 Other Lab Results: Abnormal Lab Results 09/05/16 09/05/16 09/05/16 02:04 02:04 02:04 RBC 3.64 10^6/uL L 10^6/uL (4.20-5.40) Hgb 11.4 g/dL L g/dL (12.0-16.0) Hct 33.1 % L % (37.0-47.0) MCH 31.4 pg H pg (27.0-31.0) RDW 15.3 % H % (12.0-15.0) MPV 7.8 fL L fL (7.9-10.8) Lymph # 0.7 10^3/uL L 10^3/uL (1.5-3.5) Sodium 131 mmol/L L mmol/L (135-145) Potassium 3.0 mmol/L L mmol/L (3.5-5.0) Chloride 89 mmol/L L mmol/L (101-111) BUN 70 mg/dL H mg/dL (6-20) Creatinine 1.3 mg/dL H mg/dL (0.4-1.0) Estimated GFR (MDRD) 39 L (>89) Glucose 108 mg/dL H mg/dL (70-100) Alkaline Phosphatase 235 IU/L H IU/L (42-121) B-Natriuretic Peptide 638 pg/mL H pg/mL (5-100) Total Protein 8.3 g/dL H g/dL (6.7-8.2) Globulin 4.4 g/dL H g/dL (2.1-4.2) Albumin/Globulin Ratio 0.9 L (1.0-2.2) Urine Occult Blood Urine Nitrite Urine Bacteria 09/05/16 09/06/16 09/06/16 02:15 06:10 06:10 RBC Hgb Hct MCH RDW MPV Lymph # Sodium 132 mmol/L L mmol/L (135-145) Potassium 3.4 mmol/L L mmol/L (3.5-5.0) Chloride 93 mmol/L L mmol/L (101-111) BUN 59 mg/dL H mg/dL (6-20) Creatinine Estimated GFR (MDRD) 52 L (>89) Glucose Alkaline Phosphatase B-Natriuretic Peptide 926 pg/mL H pg/mL (5-100) Total Protein Globulin Albumin/Globulin Ratio Urine Occult Blood SMALL H (NEGATIVE) Urine Nitrite POSITIVE H (NEGATIVE) Urine Bacteria Moderate /HPF H /HPF (None Seen) 09/06/16 06:10 RBC 3.55 10^6/uL L 10^6/uL (4.20-5.40) Hgb 11.2 g/dL L g/dL (12.0-16.0) Hct 33.1 % L % (37.0-47.0) MCH 31.5 pg H pg (27.0-31.0) RDW 15.6 % H % (12.0-15.0) MPV 7.4 fL L fL (7.9-10.8) Lymph # 0.8 10^3/uL L 10^3/uL (1.5-3.5) Sodium Potassium Chloride BUN Creatinine Estimated GFR (MDRD) Glucose Alkaline Phosphatase B-Natriuretic Peptide Total Protein Globulin Albumin/Globulin Ratio Urine Occult Blood Urine Nitrite Urine Bacteria - FOLLOW UP Follow Up: Follow up with Dr Alf Ruth within 1 week of discharge for repeat lab work and evaluation for edema in the legs and lungs."
[2016-09-06] MEDS: CIPROFLOXACIN 250 MG TABLET PO SCH (09:08)
[2016-09-06] MEDS: rOPINIRole 1 MG TABLET PO SCH (09:08)
[2016-09-06] MEDS: DABIGATRAN 75 MG CAPSULE PO SCH (09:08)
[2016-09-06] MEDS: GABAPENTIN 100 MG CAPSULE PO SCH (09:08)
[2016-09-06] MEDS: DIGOXIN 125 MCG TABLET PO SCH (09:08)
[2016-09-06] MEDS: FUROSEMIDE 40 MG/4 ML SOLUTION PO SCH ×2 (09:09→10:49)
[2016-09-06] MEDS: POLYETHYLENE GLYCOL 3350 17 GM PACKET PO SCH (09:15)
[2016-09-06 10:33] VITALS: BP 100/59
[2016-09-07] MEDS ORDERED: POTASSIUM CHLORIDE 20 MEQ TABLET PO SCH (08:00)
[2016-09-07] MEDS ORDERED: SULFAM/TRIM 800/160 Prepack 2 PO SCH (09:00)
== END 2016-09-06 12:55 | disposition home health service (06) | DRG 292 ==
LOC: EDUNIT# → ED 01:14 → MS 03:34
PROVIDERS: ADMIT Specialist; ATTEND Nurse Practitioner
DX: I50.9 Heart failure, unspecified (principal); M54.2 Cervicalgia; Z91.81 History of falling; N39.0 Urinary tract infection, site not specified; E87.1 Hypo-osmolality and hyponatremia; E78.00 Pure hypercholesterolemia, unspecified; R55 Syncope and collapse; E87.6 Hypokalemia; I48.2 Chronic atrial fibrillation; Z79.02 Long term (current) use of antithrombotics/antiplatelets; I25.10 Atherosclerotic heart disease of native coronary artery without angina pectoris; E03.9 Hypothyroidism, unspecified; K21.9 Gastro-esophageal reflux disease without esophagitis; R32 Unspecified urinary incontinence; N28.9 Disorder of kidney and ureter, unspecified; M10.9 Gout, unspecified; Z79.891 Long term (current) use of opiate analgesic; Z79.899 Other long term (current) drug therapy; Z95.5 Presence of coronary angioplasty implant and graft; Z95.0 Presence of cardiac pacemaker
CPT/HCPCS: 36415; 70450; 71010; 72125; 80048; 80053; 80162; 81001; 81003; 83690; 83735; 83880; 84100; 84439; 84443; 84481; 84484; 85025; 87077; 87086; 93005; 93306; 96374; 99283; 99284; 99285

== ENCOUNTER 2016-10-07 18:48 | Outpatient (CLI) | payer MEDICARE, MEDICAID | END 2016-10-07 18:49 | disposition critical access hospital (66) | LOC: EMS 18:48 | PROVIDERS: ATTEND Surgery | DX: R06.00 Dyspnea, unspecified (principal) | CPT/HCPCS: A0425; A0427 ==

== ENCOUNTER 2016-10-07 19:07 | Emergency (ER) | payer MEDICARE, MEDICAID ==
[2016-10-07] MEDS ORDERED: FUROSEMIDE 20 MG/2 ML VIAL IVP STA (20:45)
--- NOTE | 2016-10-07 20:45 | ED Physician Documentation ---
History of Present Illness - Stated complaint Stated Complaint: SOA/RASH & EDEMA - Chief complaint Chief Complaint: General - History obtained from History obtained from: Patient - Additonal information Additional information: Patient is a 89-year-old female with a history of congestive heart failure who presents with a complaint of increasing leg swelling bilaterally and a erythematous rash on the left anterior medial aspect of the left lower extremity extending up to just above the knee. The rash slightly painful. Is been present for 3 days. She is never seen her had this type rash before. Her legs are always swollen however she thinks her little bit more swollen than usual. She is on Lasix chronically and does have a known history of congestive heart failure. She denies any worsening shortness of breath. She has no complaints of chest pain, fever, chills, or cough. Review of systems: For pertinent positive and negatives in the review of systems please see the history of present illness, otherwise all other systems have been reviewed and are negative. Dragon disclaimer: Parts of this medical record were created using voice recognition technology. Because of the inherent limitations of this system, occasional same sounding word substitutions do occur and persist despite proofreading. Please read the document for context. 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: Miscarriage(s) : Incontinence, Renal insuffiency HEENT: None Psych: None Musculoskeletal: Gout Derm: Other - Past Surgical History Past Surgical History: Yes General: Appendectomy Ortho: Spine surgery /SNOWBOARD DESIGNER: 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 Cardiovascular: Coronary stent, Pacemaker - Present Medications Home Medications: Ambulatory Orders Medication Instructions Recorded Confirmed Dabigatran [Pradaxa] 75 mg PO BID 09/18/12 09/05/16 Digoxin [Lanoxin] 125 mcg PO DAILY 06/16/15 09/05/16 HYDROcod/ACETAM 5/325 [[place] 5/325] 1 - 2 tab PO Q4H PRN 06/16/15 09/05/16 Levothyroxine [Synthroid] 50 mcg PO QDAC 06/16/15 09/05/16 Ropinirole HCl 1 mg PO DAILY 06/16/15 09/05/16 Ropinirole HCl 2 mg PO QPM 06/16/15 09/05/16 hydrALAZINE [Apresoline] 25 mg PO QD 06/16/15 09/05/16 Acetaminophen 650 mg PO Q4H PRN 09/05/16 09/05/16 Calcium Carbonate/Vitamin D3 1 tab ORAL BID 09/05/16 09/05/16 [Calcium 500-Vit D3 200 Tablet] Chlorhexidine Gluconate 15 ml MM DAILY 09/05/16 09/05/16 Cholecalciferol (Vitamin D3) 2,000 units ORAL BID 09/05/16 09/05/16 [Vitamin D3] Colchicine 0.6 mg PO BID PRN 09/05/16 09/05/16 Diltiazem HCl 120 mg PO TID 09/05/16 09/05/16 Gabapentin 100 mg ORAL BID 09/05/16 09/05/16 Magnesium Hydroxide [Milk of 1,200 mg ORAL DAILY PRN 09/05/16 09/05/16 Magnesia] Metolazone 2.5 mg ORAL DAILY 09/05/16 09/05/16 Ciprofloxacin [Cipro] 250 mg PO BID #8 tablet 09/06/16 Furosemide [Lasix] 40 mg PO BID #0 09/06/16 09/05/16 Furosemide [Lasix] 80 mg PO BID #6 tablet 10/08/16 Potassium Chloride 20 meq PO DAILY #3 capsule.er 10/08/16 - Allergies Allergies/Adverse Reactions: Allergies Allergy/AdvReac Type Severity Reaction Status Date / Time Sulfa (Sulfonamide Allergy Intermediate Nausea Verified 10/07/16 19:11 Antibiotics) - Social History Does the pt smoke?: No Smoking Status: Never smoker Does the pt drink ETOH?: No Does the pt have substance abuse?: No - Immunizations Immunizations are current?: No Immunizations: TDAP >10years/unknown - POLST Patient has POLST: No POLST Status: DNR PD ED PE NORMAL - Vitals Vital signs reviewed: Yes - General General: Alert and oriented X 3, No acute distress, Well developed/nourished - HEENT HEENT: Atraumatic - Neck Neck: Supple, no meningeal sign, No bony TTP - Cardiac Cardiac: RRR, No murmur, No gallop - Respiratory Respiratory: No respiratory distress, Clear bilaterally - Abdomen Abdomen: Normal bowel sounds, Non tender, Non distended - Extremities Extremities: No deformity, No tenderness to palpate, Other (Thin petite female with sarcopenia with massive edematous legs. There is edema up to the proximal thighs bilaterally much of which she says is old. There is 4+ pitting edema bilaterally of the lower extremities and there is a erythematous area with small papules present in the anterior medial left leg) Results - Vitals Vitals: Vital Signs - 24 hr 10/07/16 10/07/16 10/07/16 19:08 20:28 20:38 Temperature 36.1 C L 36.0 C L Heart Rate 77 62 60 Respiratory 20 17 16 Rate Blood Pressure 105/53 L 102/50 L 102/50 L O2 Saturation 100 98 94 10/07/16 10/07/16 10/07/16 21:50 22:29 23:24 Temperature 37.0 C Heart Rate 70 83 84 Respiratory 15 16 Rate Blood Pressure 117/64 124/83 H 106/57 L O2 Saturation 93 96 94 10/08/16 00:22 Temperature 36.9 C Heart Rate 85 Respiratory 16 Rate Blood Pressure 104/62 O2 Saturation 94 Oxygen O2 Source [With Activity] Room air O2 Source Room air - Labs Labs: Laboratory Tests 10/07/16 10/07/16 10/07/16 21:25 21:30 21:30 WBC 7.6 RBC 3.95 L Hgb 12.4 Hct 36.9 L MCV 93.5 MCH 31.3 H MCHC 33.5 RDW 16.3 H Plt Count 159 MPV 7.8 L Neut # 6.0 Lymph # 0.7 L [place] # 0.7 Eos # 0.1 Baso # 0.1 Absolute Nucleated RBC 0.00 Nucleated RBCs 0.0 Sodium 130 L Potassium 3.5 Chloride 89 L Carbon Dioxide 28 Anion Gap 13.0 BUN 60 H Creatinine 1.3 H Estimated GFR (MDRD) 39 L Glucose 105 H Calcium 9.7 Total Bilirubin 1.5 H AST 42 ALT 25 Alkaline Phosphatase 234 H Troponin I B-Natriuretic Peptide Total Protein 8.2 Albumin 3.7 Globulin 4.5 H Albumin/Globulin Ratio 0.8 L Lipase 32 Urine Color YELLOW Urine Clarity CLEAR Urine pH 7.0 Ur Specific [place] 1.010 Urine Protein NEGATIVE Urine Glucose (UA) NEGATIVE Urine Ketones NEGATIVE Urine Occult Blood TRACE-INTA Urine Nitrite NEGATIVE Urine Bilirubin NEGATIVE Urine Urobilinogen 0.2 (NORMAL) Ur Leukocyte Esterase SMALL H Urine RBC 0-5 Urine WBC 6-10 H Ur Squamous Epith Cells FEW Squamous Urine Bacteria Few Urine Casts 3-5 Hyaline Casts Ur Microscopic Review INDICATED Urine Culture Comments INDICATED Last Dose Date Last Dose Time Digoxin 10/07/16 10/07/16 10/07/16 21:30 21:30 21:30 WBC RBC Hgb Hct MCV MCH MCHC RDW Plt Count MPV Neut # Lymph # [place] # Eos # Baso # Absolute Nucleated RBC Nucleated RBCs Sodium Potassium Chloride Carbon Dioxide Anion Gap BUN Creatinine Estimated GFR (MDRD) Glucose Calcium Total Bilirubin AST ALT Alkaline Phosphatase Troponin I 0.12 B-Natriuretic Peptide 956 H Total Protein Albumin Globulin Albumin/Globulin Ratio Lipase Urine Color Urine Clarity Urine pH Ur Specific [place] Urine Protein Urine Glucose (UA) Urine Ketones Urine Occult Blood Urine Nitrite Urine Bilirubin Urine Urobilinogen Ur Leukocyte Esterase Urine RBC Urine WBC Ur Squamous Epith Cells Urine Bacteria Urine Casts Ur Microscopic Review Urine Culture Comments Last Dose Date UNKNOWN Last Dose Time UNKNOWN Digoxin 1.1 PD MEDICAL DECISION MAKING - ED course Complexity details: reviewed old records, reviewed results, re-evaluated patient , considered differential, d/w patient, d/w family ED course: Patient is a pleasant 89-year-old female sent in primarily for a rash on her left lower extremity that is slightly painful. On examination this patient is a pleasant petite female with significant findings of dependent edema which for the most part have been present for a long time. The patient says that there is been interval increase in her leg size but she does not have any worse shortness of breath and is been no chest pain orthopnea or PND. EKG shows paced rhythm at 64 bpm I do not appreciate any ST elevation, depression or T- wave inversion. The ST elevation that is present is related to the pacing and is benign morphology. Chest x-ray shows cardiomegaly but no obvious acute intrathoracic disease. Blood work shows elevated BNP and mild increase or worsening of her renal function over baseline. This patient I believe is more edematous than her baseline despite taking Lasix on a daily basis at 40 mg twice daily. The rash might be related to stasis dermatitis it does not clearly look infectious. I also thought about possible drug related rashes and reviewed several of her medications including the dabigatran to see if this is a typical type rash. At this point in time the patient was given 100 mg of Lasix intravenously and has diuresed nicely here in emergency department. I think by decreasing the edema in her legs her rash may improve. My treatment plan is to increase her Lasix to double dose as well as her potassium for 3 days and then resume normal dosing. Description's and explanation were placed in the discharge instructions of the plan. Disposition: To home Clinical impression: 1. Interval worsening of pedal edema secondary to right-sided heart failure 2. Suspect stasis dermatitis bilateral lower extremities left greater than right Departure - Departure Disposition: 01 Home, Self Care Clinical Impression: Congestive heart failure (CHF), Stasis dermatitis Condition: Good Instructions: ED CHF General Prescriptions: Furosemide [Lasix] 80 mg PO BID #6 tablet Potassium Chloride 20 meq PO DAILY #3 capsule.er Comments: I think Marielle is more fluid overloaded tonight with worsening pedal edema. The dermatitis on her legs especially the left leg I think is probably secondary to stasis dermatitis. I am recommending increasing her Lasix and potassium to double doses for the next 3 days and see if there is any improvement. This means 80 mg of Lasix twice a day for 3 days and 20 Meq of potassium per day for 3 days
--- NOTE | 2016-10-07 20:49 | XRAY Preliminary Report ---
Exam: XR Chest 2 View PA/LAT IMPRESSION: Cardiomegaly unchanged. [facility] SITE ID: [id number]
--- NOTE | 2016-10-07 20:52 | XRAY Report ---
EXAM: CHEST RADIOGRAPHY EXAM DATE: 10/07/2016 08:17 PM. CLINICAL HISTORY: Dyspnea COMPARISON: 09/05/2016. TECHNIQUE: 2 views. FINDINGS: Lungs/Pleura: Lungs appear unchanged. No developing consolidative process. Negative for pneumothorax. Mediastinum: Cardiomegaly unchanged. Pacemaker defibrillator leads overlie right atrium and right maria esther tricle, unchanged. Other: None. IMPRESSION: Cardiomegaly unchanged. [facility] Referring Provider Line: [phone] SITE ID: [id number]
[2016-10-07] MEDS ORDERED: FUROSEMIDE 40 MG/4 ML VIAL IVP STA (20:54)
[2016-10-07] MEDS ORDERED: FUROSEMIDE 40 MG/4 ML VIAL ONE ×2 (21:18→21:26)
[2016-10-07] MEDS ORDERED: FUROSEMIDE 20 MG/2 ML VIAL IVP ONE (21:26)
[2016-10-07 21:38] LABS: BASOPHILS # (AUTO) 0.1 10^3/uL (0.0-0.1); BASOPHILS % (AUTO) 1.1 %; EOSINOPHILS # (AUTO) 0.1 10^3/uL (0.0-0.7); EOSINOPHILS % (AUTO) 1.3 %; HCT - HEMATOCRIT 36.9 % (37.0-47.0); HGB - HEMOGLOBIN 12.4 g/dL (12.0-16.0); LYMPHOCYTES # (AUTO) 0.7 10^3/uL (1.5-3.5); MEAN CORPUSCULAR HEMOGLOBIN 31.3 pg (27.0-31.0); MEAN CORPUSCULAR HGB CONC 33.5 g/dL (32.0-36.0); MEAN CORPUSCULAR VOLUME 93.5 fL (81.0-99.0); MEAN PLATELET VOLUME 7.8 fL (7.9-10.8); MONOCYTES # (AUTO) 0.7 10^3/uL (0.0-1.0); MONOCYTES % (AUTO) 9.9 %; NEUTROPHILS % (AUTO) 78.7 %; RED BLOOD COUNT 3.95 10^6/uL (4.20-5.40); RED CELL DISTRIBUTION WIDTH 16.3 % (12.0-15.0); UNCORRECTED WHITE BLOOD COUNT 7.6 x10^3/uL; WHITE BLOOD COUNT 7.6 x10^3/uL (4.8-10.8)
[2016-10-07 21:41] LABS: BILIRUBIN,URINE NEGATIVE (NEGATIVE)
[2016-10-07 21:43] LABS: UA w/ MICROSCOPIC CHARGE YES
[2016-10-07 21:50] LABS: UR CULTURE IF IND INDICATED
[2016-10-07 21:51] LABS: ALBUMIN/GLOBULIN RATIO 0.8 (1.0-2.2); BILIRUBIN,TOTAL 1.5 mg/dL (0.2-1.0); CALCIUM 9.7 mg/dL (8.5-10.3); CREATININE 1.3 mg/dL (0.4-1.0); POTASSIUM 3.5 mmol/L (3.5-5.0); TOTAL PROTEIN 8.2 g/dL (6.7-8.2)
[2016-10-08 02:09] VITALS: BP 121/50
== END 2016-10-08 02:00 | disposition home or self-care (01) ==
LOC: ED 19:07
DX: I50.9 Heart failure, unspecified (principal); I87.2 Venous insufficiency (chronic) (peripheral); I25.10 Atherosclerotic heart disease of native coronary artery without angina pectoris; Z95.5 Presence of coronary angioplasty implant and graft; Z95.0 Presence of cardiac pacemaker
CPT/HCPCS: 36415; 71020; 80053; 80162; 81001; 81003; 83690; 83880; 84484; 85025; 87086; 93005; 96374; 99284

== ENCOUNTER 2016-10-20 21:18 | Outpatient (CLI) | payer MEDICARE, MEDICAID | END 2016-10-20 21:19 | disposition EMS.NT | LOC: EMS 21:18 | PROVIDERS: ATTEND Surgery | DX: Z03.89 Encounter for observation for other suspected diseases and conditions ruled out (principal); W19.XXXA Unspecified fall, initial encounter; Y92.122 Bedroom in nursing home as the place of occurrence of the external cause ==

== ENCOUNTER 2016-10-30 08:22 | Outpatient (CLI) | payer MEDICARE, MEDICAID | END 2016-10-30 08:23 | disposition critical access hospital (66) | LOC: EMS 08:22 | PROVIDERS: ATTEND Surgery | DX: R50.9 Fever, unspecified (principal); R53.1 Weakness; R15.9 Full incontinence of feces | CPT/HCPCS: A0425; A0429 ==

== ENCOUNTER 2016-10-30 08:36 | Inpatient (IN) | payer MEDICARE, MEDICAID ==
[2016-10-30] MEDS ORDERED: SODIUM CHLORIDE 0.9% 500 ML IV ONE (08:49)
[2016-10-30 09:33] LABS: BASOPHILS # (AUTO) 0.1 10^3/uL (0.0-0.1); EOSINOPHILS % (AUTO) 0.2 %; HCT - HEMATOCRIT 34.7 % (37.0-47.0); HGB - HEMOGLOBIN 11.9 g/dL (12.0-16.0); LYMPHOCYTES # (AUTO) 0.7 10^3/uL (1.5-3.5); LYMPHOCYTES % (AUTO) 7.3 %; MEAN CORPUSCULAR HEMOGLOBIN 30.8 pg (27.0-31.0); MEAN CORPUSCULAR HGB CONC 34.3 g/dL (32.0-36.0); MEAN CORPUSCULAR VOLUME 89.9 fL (81.0-99.0); MEAN PLATELET VOLUME 8.1 fL (7.9-10.8); MONOCYTES # (AUTO) 0.7 10^3/uL (0.0-1.0); MONOCYTES % (AUTO) 7.5 %; NEUTROPHILS # (AUTO) 7.6 10^3/uL (1.5-6.6); RED BLOOD COUNT 3.85 10^6/uL (4.20-5.40); RED CELL DISTRIBUTION WIDTH 15.7 % (12.0-15.0); UNCORRECTED WHITE BLOOD COUNT 9.1 x10^3/uL; WHITE BLOOD COUNT 9.1 x10^3/uL (4.8-10.8)
[2016-10-30 09:44] LABS: ALBUMIN/GLOBULIN RATIO 0.7 (1.0-2.2); BILIRUBIN,TOTAL 1.6 mg/dL (0.2-1.0); CALCIUM 9.5 mg/dL (8.5-10.3); CREATININE 1.4 mg/dL (0.4-1.0); POTASSIUM 2.9 mmol/L (3.5-5.0); TOTAL PROTEIN 7.3 g/dL (6.7-8.2)
--- NOTE | 2016-10-30 09:45 | XRAY Preliminary Report ---
Exam: XR Chest 1 View IMPRESSION: Possible mild pulmonary vascular congestion. Otherwise no radiographically apparent acute abnormality or significant change from prior. [facility] SITE ID: [id number]
--- NOTE | 2016-10-30 09:47 | XRAY Report ---
EXAM: CHEST RADIOGRAPHY EXAM DATE: 10/30/2016 09:25 AM. CLINICAL HISTORY: Fever, dyspnea. COMPARISON: 10/07/2016. TECHNIQUE: 1 view. FINDINGS: Lungs/Pleura: Bilateral reticular pulmonary opacities have not significantly changed compared to prio r allowing for differences in technique and are likely chronic. Possible mild pulmonary vascular lou estion. No focal consolidation, pleural effusion, or pneumothorax. Mediastinum: Similar moderate enlargement of the cardiac silhouette and tortuous, atherosclerotic tho racic aorta. Other: Dual-lead left chest cardiac conduction device in stable position. IMPRESSION: Possible mild pulmonary vascular congestion. Otherwise no radiographically apparent acute abnormality or significant change from prior. [facility] Referring Provider Line: [phone] SITE ID: [id number]
[2016-10-30 10:12] LABS: BILIRUBIN,URINE NEGATIVE (NEGATIVE)
--- NOTE | 2016-10-30 10:13 | ED Physician Documentation ---
History of Present Illness - Stated complaint Stated Complaint: DEC LOC, SWOLLEN TONGUE - Chief complaint Chief Complaint: General - History obtained from History obtained from: Patient, EMS - Additonal information Additional information: The patient is an 89-year-old female who lives in an assisted living facility and arrives via ambulance because of decreased level of consciousness this morning. Caregivers found her drowsy and unable to get out of bed. She was incontinent of stool, and was noted to have low oxygen saturation. Medics were told that she had a low-grade fever of 100. The patient denies any pain, including chest pain, headache, abdominal pain. She does report mild dysuria. Past medical history is significant for atrial fibrillation. She is on Pradaxa and digoxin. She also has history of congestive heart failure. She normally ambulates with the use of a walker, but has been using a wheelchair more recently. Review of Systems Constitutional: reports: Fever (Low-grade), Fatigue Nose: denies: Congestion Throat: denies: Sore throat Cardiac: denies: Chest pain / pressure Respiratory: denies: Dyspnea, Cough GI: denies: Abdominal Pain, Nausea, Vomiting : reports: Dysuria, Incontinent Skin: reports: Rash (Lower abdomen.) Musculoskeletal: reports: Back pain (Lower back) Neurologic: reports: Generalized weakness, Altered mental status. 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: Miscarriage(s) : Incontinence, Renal insuffiency HEENT: None Psych: None Musculoskeletal: Gout Derm: Other - Past Surgical History Past Surgical History: Yes General: Appendectomy Ortho: Spine surgery /LAB COURIER: 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 Cardiovascular: Coronary stent, Pacemaker - Present Medications Home Medications: Ambulatory Orders Medication Instructions Recorded Confirmed Dabigatran [Pradaxa] 75 mg PO BID 09/18/12 10/30/16 Digoxin [Lanoxin] 125 mcg PO DAILY 06/16/15 10/30/16 HYDROcod/ACETAM 5/325 [[place] 5/325] 1 - 2 tab PO Q4H PRN 06/16/15 10/30/16 Levothyroxine [Synthroid] 50 mcg PO QDAC 06/16/15 10/30/16 Ropinirole HCl 1 mg PO BID 06/16/15 10/30/16 Ropinirole HCl 2 mg PO QPM 06/16/15 10/30/16 Acetaminophen 650 mg PO Q4H PRN 09/05/16 10/30/16 Calcium Carbonate/Vitamin D3 1 tab ORAL BID 09/05/16 10/30/16 [Calcium 500-Vit D3 200 Tablet] Chlorhexidine Gluconate 15 ml MM DAILY 09/05/16 10/30/16 Cholecalciferol (Vitamin D3) 2,000 units ORAL BID 09/05/16 10/30/16 [Vitamin D3] Colchicine 0.6 mg PO BID PRN 09/05/16 10/30/16 Diltiazem HCl 120 mg PO TID 09/05/16 10/30/16 Gabapentin 100 mg ORAL BID 09/05/16 10/30/16 Magnesium Hydroxide [Milk of 1,200 mg ORAL DAILY PRN 09/05/16 10/30/16 Magnesia] Metolazone 2.5 mg ORAL DAILY 09/05/16 10/30/16 Potassium Chloride 20 meq PO DAILY #3 capsule.er 10/08/16 10/30/16 Nystatin 10/30/16 Torsemide 20 mg PO BID 10/30/16 10/30/16 guaiFENesin/DEXTROMETHORPHAN 5 ml PO Q6HR 10/30/16 10/30/16 [Robitussin Dm] - Allergies Allergies/Adverse Reactions: Allergies Allergy/AdvReac Type Severity Reaction Status Date / Time Sulfa (Sulfonamide Allergy Intermediate Nausea Verified 10/30/16 08:44 Antibiotics) - Living Situation Living Arrangement: reports: Assisted living - Social History Does the pt smoke?: No Smoking Status: Never smoker Does the pt drink ETOH?: No Does the pt have substance abuse?: No - Immunizations Immunizations are current?: No Immunizations: TDAP >10years/unknown - POLST Patient has POLST: No POLST Status: DNR PD ED PE NORMAL - Vitals Vital signs reviewed: Yes (Borderline hypotension) - General General: Other (Drowsy, but easily arousable elderly female who responds to questions but is confused.) - HEENT HEENT: Atraumatic, EOMI, Pharynx benign - Neck Neck: Supple, no meningeal sign, No adenopathy, No JVD - Cardiac Cardiac: Other (Regular rate, irregularly irregular rhythm.) - Respiratory Respiratory: Other (Faint rales at the left base. No wheezes or rhonchi.) - Abdomen Abdomen: Soft, Non tender - Back Back: No CVA TTP - Derm Derm: Other (Erythema under on a lower abdominal skin fold, consistent with Chantal dermatitis.) - Extremities Extremities: No calf tenderness / cord, Other (Bilateral lower extremity edema, more notable in the legs than in the ankles.) - Neuro Neuro: Other (Drowsy but easily arousable, and is able to focus attention and answer questions. Generalized confusion, but she knows that it is nearly November, Stating that she knows her 89th birthday is coming up next month, stating that she knows her 89th birthday is coming up next month.) Results - Vitals Vitals: Vital Signs - 24 hr 10/30/16 10/30/16 10/30/16 08:37 09:00 10:00 Temperature 36.3 C L Heart Rate 91 77 74 Respiratory 18 20 18 Rate Blood Pressure 90/54 L 133/65 H 129/68 O2 Saturation 93 94 94 10/30/16 10/30/16 10/30/16 11:10 12:20 13:56 Temperature Heart Rate 74 89 88 Respiratory 18 19 14 Rate Blood Pressure 133/64 H 115/75 110/56 L O2 Saturation 98 97 95 Oxygen O2 Source [With Activity] Room air O2 Source Room air Oxygen Flow Rate 2 - EKG (time done) 08:59 Rhythm: Atrial fibrillation Bim: LAD, Anterior hemiblock Intervals: Prolonged QT, RBBB (incomplete) Ischemia: Q waves (in V2, consistent with previous anteroseptal CO.) Compare to prior EKG: Changed from prior EKG (Compared to previous EKG of 2016, pacer spikes are not present.) Computer interpretation: Agree with computer - Labs Labs: Laboratory Tests 10/30/16 10/30/16 10/30/16 09:15 09:15 09:15 WBC 9.1 RBC 3.85 L Hgb 11.9 L Hct 34.7 L MCV 89.9 MCH 30.8 MCHC 34.3 RDW 15.7 H Plt Count 127 L MPV 8.1 Neut # 7.6 H Lymph # 0.7 L [place] # 0.7 Eos # 0.0 Baso # 0.1 Absolute Nucleated RBC 0.00 Nucleated RBCs 0.0 Sodium 130 L Potassium 2.9 L Chloride 90 L Carbon Dioxide 28 Anion Gap 12.0 BUN 71 H Creatinine 1.4 H Estimated GFR (MDRD) 35 L Glucose 90 Lactic Acid Calcium 9.5 Total Bilirubin 1.6 H AST 38 ALT 24 Alkaline Phosphatase 221 H Troponin I 0.17 B-Natriuretic Peptide Total Protein 7.3 Albumin 3.1 L Globulin 4.2 Albumin/Globulin Ratio 0.7 L Lipase 48 Urine Color Urine Clarity Urine pH Ur Specific [place] Urine Protein Urine Glucose (UA) Urine Ketones Urine Occult Blood Urine Nitrite Urine Bilirubin Urine Urobilinogen Ur Leukocyte Esterase Urine RBC Urine WBC Urine WBC Clumps Ur Squamous Epith Cells Urine Bacteria Urine Mucus Ur Microscopic Review Urine Culture Comments Last Dose Date Last Dose Time Digoxin 10/30/16 10/30/16 10/30/16 09:15 09:15 09:15 WBC RBC Hgb Hct MCV MCH MCHC RDW Plt Count MPV Neut # Lymph # [place] # Eos # Baso # Absolute Nucleated RBC Nucleated RBCs Sodium Potassium Chloride Carbon Dioxide Anion Gap BUN Creatinine Estimated GFR (MDRD) Glucose Lactic Acid 1.2 Calcium Total Bilirubin AST ALT Alkaline Phosphatase Troponin I B-Natriuretic Peptide 1314 H Total Protein Albumin Globulin Albumin/Globulin Ratio Lipase Urine Color Urine Clarity Urine pH Ur Specific [place] Urine Protein Urine Glucose (UA) Urine Ketones Urine Occult Blood Urine Nitrite Urine Bilirubin Urine Urobilinogen Ur Leukocyte Esterase Urine RBC Urine WBC Urine WBC Clumps Ur Squamous Epith Cells Urine Bacteria Urine Mucus Ur Microscopic Review Urine Culture Comments Last Dose Date UNK Last Dose Time UNK Digoxin 0.9 10/30/16 09:30 WBC RBC Hgb Hct MCV MCH MCHC RDW Plt Count MPV Neut # Lymph # [place] # Eos # Baso # Absolute Nucleated RBC Nucleated RBCs Sodium Potassium Chloride Carbon Dioxide Anion Gap BUN Creatinine Estimated GFR (MDRD) Glucose Lactic Acid Calcium Total Bilirubin AST ALT Alkaline Phosphatase Troponin I B-Natriuretic Peptide Total Protein Albumin Globulin Albumin/Globulin Ratio Lipase Urine Color YELLOW Urine Clarity CLEAR Urine pH 7.0 Ur Specific [place] 1.010 Urine Protein NEGATIVE Urine Glucose (UA) NEGATIVE Urine Ketones NEGATIVE Urine Occult Blood LARGE H Urine Nitrite POSITIVE H Urine Bilirubin NEGATIVE Urine Urobilinogen 0.2 (NORMAL) Ur Leukocyte Esterase LARGE H Urine RBC 6-10 H Urine WBC >25 H Urine WBC Clumps PRESENT Ur Squamous Epith Cells RARE Squamous Urine Bacteria Moderate H Urine Mucus Few Strands Ur Microscopic Review INDICATED Urine Culture Comments INDICATED Last Dose Date Last Dose Time Digoxin - Rads (name of study) Portable CXR Radiology: Prelim report reviewed, EMP read contemporaneously, See rad report ( Possible mild pulmonary vascular congestion. 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 Her white blood cell count is normal, as is her lactate level. Blood cultures are pending as is urine culture. There is no focal motor or sensory deficit to suggest stroke, and I doubt seizure or pneumonia. She has chronic congestive heart failure, and her BNP is quite elevated at 1314. However her chest x-ray does not look significantly different from previous chest x-rays, and with her borderline blood pressure and concern for possible sepsis, diuresis will not be pursued at this time. Treatment in the emergency department included administration of normal saline 500 mL IV. Ceftriaxone 1 g was administered IV after blood cultures were drawn. Because of hypokalemia, with potassium of 2.9, supplemental potassium was administered both IV and orally. After the above treatment the patient's mental status gradually improved, and she began complaining of pain in her lower back. Vicodin 1 tablet was administered orally (she normally takes 1 Vicodin 3 times daily). I discussed her condition with Dr. Coyne who evaluated her in the emergency department and admitted her for further evaluation and treatment. Departure - Departure Disposition: [facility] DC/Xfer Clinical Impression: Chronic right-sided congestive heart failure, Hypokalemia Urinary tract infection Qualifiers: Urinary tract infection type: acute cystitis Hematuria presence: with hematuria Qualified Code(s): N30.01 - Acute cystitis with hematuria Altered mental status, unspecified Qualifiers: Altered mental status type: somnolence Qualified Code(s): R40.0 - Somnolence Condition: Fair Discharge Date/Time: 10/30/16 16:38
[2016-10-30 10:38] LABS: UA w/ MICROSCOPIC CHARGE YES
[2016-10-30 11:02] LABS: WBC,URINE >25 /HPF (0-5)
[2016-10-30 11:03] LABS: UR CULTURE IF IND INDICATED
[2016-10-30] MEDS ORDERED: cefTRIAXone 1 GM VIAL IVP STA (11:44)
[2016-10-30] MEDS ORDERED: POTASSIUM BICARB 25 MEQ TABLET PO STA (11:44)
[2016-10-30] MEDS ORDERED: POTASSIUM CHLOR 10 MEQ/100 ML 100 ML IV ONE ×2 (11:45→11:57)
[2016-10-30] MEDS ORDERED: POTASSIUM BICARB 25 MEQ TABLET PO ONE (11:57)
[2016-10-30] MEDS ORDERED: cefTRIAXone 1 GM VIAL ONE (11:58)
[2016-10-30] MEDS ORDERED: SODIUM CHLORIDE FLUSH 0.9% 10 ML SYRINGE IVP ONE (11:58)
[2016-10-30] MEDS ORDERED: HYDROcod/ACETAM 5/325 MG TABLET PO STA (13:54)
[2016-10-30] MEDS ORDERED: HYDROcod/ACETAM 5/325 MG TABLET ONE (14:06)
[2016-10-30] MEDS ORDERED: FUROSEMIDE 20 MG/2 ML VIAL IVP STA (15:05)
[2016-10-30] MEDS ORDERED: COLCHICINE 0.6 MG TABLET PO PRN (15:24)
[2016-10-30] MEDS ORDERED: HYDROcod/ACETAM 10 MG/325 MG TABLET PO PRN (15:27)
[2016-10-30] MEDS ORDERED: ONDANSETRON 4 MG/2 ML VIAL IVP PRN (15:27)
[2016-10-30] MEDS ORDERED: SODIUM CHLORIDE FLUSH 0.9% 10 ML SYRINGE IVP PRN (15:27)
[2016-10-30] MEDS ORDERED: PROCHLORPERAZINE 10 MG/2 ML VIAL IVP PRN (15:27)
[2016-10-30] MEDS ORDERED: ACETAMINOPHEN 325 MG TABLET PO PRN (15:27)
--- NOTE | 2016-10-30 16:42 | HISTORY & PHYSICAL EXAMINATION ---
Chief Complaint - Chief Complaint Chief Complaint: Lethargy History of Present Illness - Admitted From Admitted From:: Emergency department - History Obtained From Records Reviewed: Yes History obtained from: Patient Exam Limitations: None - History of Present Illness HPI Comment/Other: Patient is a pleasant 89-year-old female with a past medical history significant for atrial fibrillation on Pradaxa, coronary artery disease, congestive heart failure on Lasix and Zaroxolyn, hypertension, gout, hypothyroidism, pacemaker placement and hyperlipidemia who presented to the emergency department with a chief complaint of lethargy. The patient states that she was in her her normal state of health until the last few days when she states that she has been feeling weak and sleepy throughout the day. She states that today when she tried to get out of bed she was too weak to stand. According to the staff at her assisted living facility ([facility]) the patient was very difficult to arouse this morning and continued to be lethargic even after she got up. At the assisted living facility she was found to have a low- grade fever and was sent to the emergency department. The patient denies having had any headaches, blurred vision, runny nose, sore throat, cough, fevers , chills, shortness of air, orthopnea, she does admit to chronic lower extremity swelling, she denies any chest pain, abdominal pain, nausea, vomiting , diarrhea, constipation, muscle aches, joint pains, she admits to decreased appetite the last couple of days, but she denies recent unintentional weight loss or any focal neurologic deficits. On presentation to the emergency department the patient was afebrile, her heart rate was in the 90s and she was borderline hypotensive with a blood pressure of 90/54. The patient did appear to be lethargic and was difficult to arouse initially. The patient was given 500 mL of normal saline when she arrived in the emergency department. The patient underwent routine lab work and a urine analysis. Lab work revealed no leukocytosis, patient's sodium was decreased at 130, her potassium was low at 2.9 and her BNP was elevated at 1314. The patient 's urine analysis showed positive nitrates, large leukocyte esterase, greater than 25 WBCs and moderate bacteria consistent with urinary tract infection. The patient was given ceftriaxone in the emergency department and an attempt was made to ambulate the patient to send her back to her assisted living facility. When nursing tried to get the patient to ambulate she was too weak to stand and given her generalized weakness and continued drowsiness the patient was admitted to the hospital for urinary tract infection. Review of Systems - Other Findings Other Findings: A comprehensive of review of systems was performed the pertinent positives and negatives are stated above in the HPI the remainder of the review of systems is negative. History - Past Medical History Cardiovascular: reports: Congestive heart failure (Preserved Ejection Fraction, Right sided), High cholesterol, Coronary artery disease, Atrial fibrillation ( rate controlled, anticoagulated) Respiratory: reports: None Neuro: reports: None, Other (Restless leg syndrome) Endocrine/Autoimmune: reports: HyPOthyroidism GI: reports: GERD, Hemorrhoids LOGISTICS ASSISTANT: reports: Miscarriage(s) : reports: Incontinence, Renal insuffiency HEENT: reports: None Psych: reports: None Musculoskeletal: reports: Gout (Right great toe) Derm: reports: Other (Yeast infection (groin)) MRSA Hx?: No - Past Surgical History General: reports: Appendectomy Ortho: reports: Spine surgery /LOGISTICS ASSISTANT: reports: 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 Cardiovascular: reports: Coronary stent, Pacemaker - Family & Social History Family History: Mother: , CAD, Father: , CAD Family History Comment/Other: Mother: (age 92), Father: , [place], Sister: Alive and Well ( daughter - hepatitis C), Brother: Alive and Well, Other family: Alive and Well Living arrangement: Assisted living Living Situation: Alone Social History Notes: Patient has lived in an assisted care facility for the past year, she lives independently in her room with assistance for her medications and all meals. She has been x 2 years. Her 2 daughters and son live on [facility], her children and grandchildren come to visit her occasionally. She affiliated with the [employer] but has been unable to attend since moving to [facility]. 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 She is originally from [place] and graduated from high school in a class of on 12 kids. She does not smoke, drink alochol or use any illict drugs. - Substance History Use: Uses substance without health or social issues: NONE Abuse: Recurrent use of substance despite neg consequences: NONE Dependence: Experiences withdrawal or developed tolerances: NONE - POLST Patient has POLST: No POLST Status: DNR Meds/Allgy - Home Medications Home Medications: Ambulatory Orders Medication Instructions Recorded Confirmed Dabigatran [Pradaxa] 75 mg PO BID 09/18/12 10/30/16 Digoxin [Lanoxin] 125 mcg PO DAILY 06/16/15 10/30/16 HYDROcod/ACETAM 5/325 [Bivins 5/325] 1 - 2 tab PO Q4H PRN 06/16/15 10/30/16 Levothyroxine [Synthroid] 50 mcg PO QDAC 06/16/15 10/30/16 Ropinirole HCl 1 mg PO BID 06/16/15 10/30/16 Ropinirole HCl 2 mg PO QPM 06/16/15 10/30/16 Acetaminophen 650 mg PO Q4H PRN 09/05/16 10/30/16 Calcium Carbonate/Vitamin D3 1 tab ORAL BID 09/05/16 10/30/16 [Calcium 500-Vit D3 200 Tablet] Chlorhexidine Gluconate 15 ml MM DAILY 09/05/16 10/30/16 Cholecalciferol (Vitamin D3) 2,000 units ORAL BID 09/05/16 10/30/16 [Vitamin D3] Colchicine 0.6 mg PO BID PRN 09/05/16 10/30/16 Diltiazem HCl 120 mg PO TID 09/05/16 10/30/16 Gabapentin 100 mg ORAL BID 09/05/16 10/30/16 Magnesium Hydroxide [Milk of 1,200 mg ORAL DAILY PRN 09/05/16 10/30/16 Magnesia] Metolazone 2.5 mg ORAL DAILY 09/05/16 10/30/16 Potassium Chloride 20 meq PO DAILY #3 capsule.er 10/08/16 10/30/16 Nystatin 10/30/16 Torsemide 20 mg PO BID 10/30/16 10/30/16 guaiFENesin/DEXTROMETHORPHAN 5 ml PO Q6HR 10/30/16 10/30/16 [Robitussin Dm] - Allergies Allergies/Adverse Reactions: Allergies Allergy/AdvReac Type Severity Reaction Status Date / Time Sulfa (Sulfonamide Allergy Intermediate Nausea Verified 10/30/16 08:44 Antibiotics) Exam - Vital Signs Reviewed Vital Signs: Yes Vital Signs: Vital Signs x48h Temp Pulse Resp BP Pulse Ox 10/30/16 16:24 80 12 110/58 L 97 10/30/16 15:32 85 15 101/62 97 10/30/16 15:29 78 16 79/52 L 94 10/30/16 13:56 88 14 110/56 L 95 10/30/16 12:20 89 19 115/75 97 10/30/16 11:10 74 18 133/64 H 98 10/30/16 10:00 74 18 129/68 94 10/30/16 09:00 77 20 133/65 H 94 10/30/16 08:37 36.3 C L 91 18 90/54 L 93 - Physical Exam General Appearance: positive: Lethargic (Patient falls asleep several times in the middle of the history) Eyes Bilateral: positive: Normal inspection, PERRL, EOMI, No lid inflammation, Conjunctivae nml, No scleral icterus ENT: positive: ENT inspection nml, Pharynx nml, Dry mucous membranes. negative : Purulent nasal drainage, Pharyngeal erythema, Oral lesions Neck: positive: Nml inspection, Thyroid nml, No JVD, Trachea midline. negative : Thyromegaly, Lymphadenopathy (R), Lymphadenopathy (L), Carotid bruit, Tracheal deviation Respiratory: positive: Chest non-tender, No respiratory distress, Breath sounds nml. negative: Wheezes, Rales, Rhonchi Cardiovascular: positive: No murmur, No gallop, Irregularly irregular, PMI displaced laterally Abdomen: positive: No organomegaly, Nml bowel sounds, No distention, Tenderness (Right upper quadrant, mild). negative: Guarding, Rebound, Hepatomegaly Back: positive: Nml inspection. negative: CVA tenderness (R), CVA tenderness (L ) Skin: positive: No rash, Warm, Dry, Other (yeast infection beneath pannus, yeast infection in genital area, bilateral LE are every dry). negative: Cyanosis, Pallor Extremities: positive: Non-tender, Full ROM, Nml appearance, Pedal edema (3+ bilaterally ankle to knee, non pitting knee to mid thigh) Neurologic/Psychiatric: positive: Oriented x3, CN's nml (2-12), Motor nml, Sensation nml, Mood/affect nml, Other (Drowsy) Conclusion/Plan - Problem List (1) Urinary tract infection Conclusion/Plan: Patient presented with lethargy and generalized weakness Low-grade fever at assisted living facility no fever here and no leukocytosis Patient was quite drowsy on presentation and remained drowsy while in the ER. Patient was too weak to get out of bed Urinalysis positive for nitrites, occult blood, large leukocyte esterase, greater than 25 WBCs and moderate bacteria. Patient admitted to the hospital for urinary tract infection given her generalized weakness and lethargy Plan: Ceftriaxone IV IV fluids Await urine culture PT consultation Qualifiers: Urinary tract infection type: acute cystitis Hematuria presence: with hematuria Qualified Code(s): N30.01 - Acute cystitis with hematuria (2) KYREE (acute kidney injury) Conclusion/Plan: Patient's baseline creatinine is 1.0 on presentation today patient's creatinine is elevated to 1.4. Patient appears to have prerenal azotemia likely secondary to overdiuresis with Lasix and Zaroxolyn Plan: Hold Lasix and Zaroxolyn Give IV fluids with gentle hydration Monitor creatinine Avoid nephrotoxic agents. (3) Hypokalemia Conclusion/Plan: On presentation patient has hypokalemia with potassium of 2.9. This appears likely secondary to overdiuresis with Lasix and Zaroxolyn. Patient appears to be dry Plan: Replace potassium via IV and p.o. Monitor potassium (4) Congestive heart failure (CHF) Conclusion/Plan: Patient has history of diastolic heart failure with right-sided heart failure and a preserved ejection fraction. Patient's BNP is elevated at 1314 with a mildly elevated troponin of 0.17 Patient appears to be dry on examination and lab work appears to support the patient is dehydrated as she has a decreased potassium and acute kidney injury. The patient does have mild pulmonary vascular congestion on the chest x-ray but it is not changed from before. Patient does not have crackles on examination. It is slightly difficult to get an accurate volume status with this patient given that she does have edema in her legs however I feel that she is intravascularly depleted and therefore we will give her some gentle IV hydration and hold her Lasix and Zaroxolyn while she is being treated for urinary tract infection. Qualifiers: Congestive heart failure type: diastolic Congestive heart failure chronicity: acute on chronic Qualified Code(s): I50.33 - Acute on chronic diastolic (congestive) heart failure (5) Atrial fibrillation Conclusion/Plan: Patient has history of atrial fibrillation is on anticoagulation with Pradaxa and rate controlled with digoxin and diltiazem On presentation patient's rate is well controlled Patient has a chads 2 score of 3 Continue anticoagulation Continue diltiazem and digoxin Monitor on telemetry Qualifiers: Atrial fibrillation type: chronic Qualified Code(s): I48.2 - Chronic atrial fibrillation (6) Hyponatremia Conclusion/Plan: Patient has chronic hyponatremia which appears likely to be hypervolemic hyponatremia as the patient has chronic edema from right-sided heart failure. Monitor sodium (7) Hyperbilirubinemia Conclusion/Plan: Patient's bilirubin is elevated at 1.6 she also has an alk phos that is elevated to 221 This is likely secondary to hepatic congestion from right-sided heart failure We will get an abdominal ultrasound to rule out any liver or biliary pathology. (8) Hypothyroidism Conclusion/Plan: Patient has history of hypothyroidism Patient is on Synthroid at home we will continue her home dose of Synthroid Check TSH (9) Hypertension Conclusion/Plan: On presentation patient does have borderline blood pressure which is likely secondary to dehydration and infection We will monitor blood pressure closely We will continue the patient's diltiazem and digoxin but we will hold Lasix and Zaroxolyn for now. Qualifiers: Hypertension type: essential hypertension Qualified Code(s): I10 - Essential (primary) hypertension - Lab Results Lab results reviewed: Yes Fish Bones: 10/30/16 09:15 10/30/16 09:15 Other Lab Results: Laboratory Results WBC 9.1 x10^3/uL (4.8-10.8) 10/30/16 09:15 RBC 3.85 10^6/uL (4.20-5.40) L 10/30/16 09:15 Hgb 11.9 g/dL (12.0-16.0) L 10/30/16 09:15 Hct 34.7 % (37.0-47.0) L 10/30/16 09:15 MCV 89.9 fL (81.0-99.0) 10/30/16 09:15 MCH 30.8 pg (27.0-31.0) 10/30/16 09:15 MCHC 34.3 g/dL (32.0-36.0) 10/30/16 09:15 RDW 15.7 % (12.0-15.0) H 09/08/17 09:15 Plt Count 127 10^3/uL (130-450) L 10/30/16 09:15 MPV 8.1 fL (7.9-10.8) 10/30/16 09:15 Neut # 7.6 10^3/uL (1.5-6.6) H 10/30/16 09:15 Lymph # 0.7 10^3/uL (1.5-3.5) L 10/30/16 09:15 [place] # 0.7 10^3/uL (0.0-1.0) 10/30/16 09:15 Eos # 0.0 10^3/uL (0.0-0.7) 10/30/16 09:15 Baso # 0.1 10^3/uL (0.0-0.1) 10/30/16 09:15 Absolute Nucleated RBC 0.00 x10^3/uL 10/30/16 09:15 Nucleated RBCs 0.0 /100WBC 10/30/16 09:15 Sodium 130 mmol/L (135-145) L 10/30/16 09:15 Potassium 2.9 mmol/L (3.5-5.0) L 10/30/16 09:15 Chloride 90 mmol/L (101-111) L 10/30/16 09:15 Carbon Dioxide 28 mmol/L (21-32) 10/30/16 09:15 Anion Gap 12.0 (6-13) 10/30/16 09:15 BUN 71 mg/dL (6-20) H 10/30/16 09:15 Creatinine 1.4 mg/dL (0.4-1.0) H 10/30/16 09:15 Estimated GFR (MDRD) 35 (>89) L 10/30/16 09:15 Glucose 90 mg/dL (70-100) 10/30/16 09:15 Lactic Acid 1.2 mmol/L (0.5-2.2) 10/30/16 09:15 Calcium 9.5 mg/dL (8.5-10.3) 10/30/16 09:15 Total Bilirubin 1.6 mg/dL (0.2-1.0) H 10/30/16 09:15 AST 38 IU/L (10-42) 10/30/16 09:15 ALT 24 IU/L (10-60) 10/30/16 09:15 Alkaline Phosphatase 221 IU/L (42-121) H 10/30/16 09:15 Troponin I 0.17 ng/mL (<0.49) 10/30/16 09:15 B-Natriuretic Peptide 1314 pg/mL (5-100) H 10/30/16 09:15 Total Protein 7.3 g/dL (6.7-8.2) 10/30/16 09:15 Albumin 3.1 g/dL (3.2-5.5) L 10/30/16 09:15 Globulin 4.2 g/dL (2.1-4.2) 10/30/16 09:15 Albumin/Globulin Ratio 0.7 (1.0-2.2) L 10/30/16 09:15 Lipase 48 U/L (22-51) 10/30/16 09:15 Urine Color YELLOW 10/30/16 09:30 Urine Clarity CLEAR (CLEAR) 10/30/16 09:30 Urine pH 7.0 PH (5.0-7.5) 10/30/16 09:30 Ur Specific [place] 1.010 (1.002-1.030) 10/30/16 09:30 Urine Protein NEGATIVE mg/dL (NEGATIVE) 10/30/16 09:30 Urine Glucose (UA) NEGATIVE mg/dL (NEGATIVE) 10/30/16 09:30 Urine Ketones NEGATIVE mg/dL (NEGATIVE) 10/30/16 09:30 Urine Occult Blood LARGE (NEGATIVE) H 10/30/16 09:30 Urine Nitrite POSITIVE (NEGATIVE) H 10/30/16 09:30 Urine Bilirubin NEGATIVE (NEGATIVE) 10/30/16 09:30 Urine Urobilinogen 0.2 (NORMAL) E.U./dL (NORMAL) 10/30/16 09:30 Ur Leukocyte Esterase LARGE (NEGATIVE) H 10/30/16 09:30 Urine RBC 6-10 /HPF (0-5) H 10/30/16 09:30 Urine WBC >25 /HPF (0-5) H 10/30/16 09:30 Urine WBC Clumps PRESENT 10/30/16 09:30 Ur Squamous Epith Cells RARE Squamous (<= Few) 10/30/16 09:30 Urine Bacteria Moderate /HPF (None Seen) H 10/30/16 09:30 Urine Mucus Few Strands 10/30/16 09:30 Ur Microscopic Review INDICATED 10/30/16 09:30 Urine Culture Comments INDICATED 10/30/16 09:30 Last Dose Date UNK 10/30/16 09:15 Last Dose Time UNK 10/30/16 09:15 Digoxin 0.9 ng/mL 10/30/16 09:15 - Diagnostic Imaging Results Diagnostic Imaging Results: positive: Final report reviewed Diagnostic Imaging Results Comments: Chest x-ray Impression: Possible mild pulmonary vascular congestion. Otherwise no radiographically apparent acute abnormality or significant change from prior. - EKG Results EKG Interpreted Independently: Yes EKG Findings: Atrial fibrillation with nonspecific T-wave abnormalities. Pacer spikes noted. Issues/Core Measures - Anticipated LOS Anticipated Stay Length: 2 or more midnights - DVT/VTE - Prophylaxis VTE/DVT Device ordered at admit?: Yes
[2016-10-30] MEDS: SACCHAROMYCES BOULARDII 250 MG CAPSULE PO SCH (17:18)
[2016-10-30] MEDS: rOPINIRole 1 MG TABLET PO SCH ×2 (17:18→21:09)
[2016-10-30] MEDS: NS W/20 MEQ KCL 1,000 ML IV SCH (17:20)
[2016-10-30] MEDS ORDERED: ZINC OXIDE 20% OINT 28.35 GM TUBE TOP ONE (20:07)
[2016-10-30] MEDS: DABIGATRAN 75 MG CAPSULE PO SCH (21:08)
[2016-10-30] MEDS: NYSTATIN POWDER 15 GM TOP SCH (21:09)
[2016-10-30] MEDS: SODIUM CHLORIDE FLUSH 0.9% 10 ML SYRINGE IVP SCH (21:09)
[2016-10-30] MEDS: HYDROcod/ACETAM 5/325 MG TABLET PO PRN (21:09)
[2016-10-30] MEDS: GABAPENTIN 100 MG CAPSULE PO SCH (21:09)
[2016-10-31] MEDS: HYDROcod/ACETAM 5/325 MG TABLET PO PRN ×2 (06:23→20:00)
[2016-10-31] MEDS: NS W/20 MEQ KCL 1,000 ML IV SCH ×2 (06:23→19:39)
[2016-10-31] MEDS: LEVOTHYROXINE 25 MCG TABLET PO SCH (06:24)
[2016-10-31] MEDS: SODIUM CHLORIDE FLUSH 0.9% 10 ML SYRINGE IVP SCH ×3 (06:24→19:40)
[2016-10-31 06:40] LABS: BASOPHILS # (AUTO) 0.1 10^3/uL (0.0-0.1); BASOPHILS % (AUTO) 1.4 %; EOSINOPHILS # (AUTO) 0.1 10^3/uL (0.0-0.7); EOSINOPHILS % (AUTO) 2.7 %; HCT - HEMATOCRIT 37.9 % (37.0-47.0); HGB - HEMOGLOBIN 12.7 g/dL (12.0-16.0); LYMPHOCYTES # (AUTO) 0.8 10^3/uL (1.5-3.5); LYMPHOCYTES % (AUTO) 16.9 %; MEAN CORPUSCULAR HEMOGLOBIN 30.8 pg (27.0-31.0); MEAN CORPUSCULAR HGB CONC 33.5 g/dL (32.0-36.0); MEAN PLATELET VOLUME 7.8 fL (7.9-10.8); MONOCYTES # (AUTO) 0.5 10^3/uL (0.0-1.0); MONOCYTES % (AUTO) 9.4 %; NEUTROPHILS # (AUTO) 3.5 10^3/uL (1.5-6.6); NEUTROPHILS % (AUTO) 69.6 %; RED BLOOD COUNT 4.12 10^6/uL (4.20-5.40); RED CELL DISTRIBUTION WIDTH 16.1 % (12.0-15.0)
[2016-10-31 06:51] LABS: ALBUMIN/GLOBULIN RATIO 0.7 (1.0-2.2); BILIRUBIN,TOTAL 1.7 mg/dL (0.2-1.0); CALCIUM 8.9 mg/dL (8.5-10.3); CREATININE 1.3 mg/dL (0.4-1.0); MAGNESIUM 1.8 mg/dL (1.7-2.8); POTASSIUM 3.2 mmol/L (3.5-5.0); TOTAL PROTEIN 7.1 g/dL (6.7-8.2)
[2016-10-31] MEDS: DABIGATRAN 75 MG CAPSULE PO SCH ×2 (09:08→20:00)
[2016-10-31] MEDS: POTASSIUM CHLORIDE 20 MEQ TABLET PO SCH (09:08)
[2016-10-31] MEDS: DIGOXIN 125 MCG TABLET PO SCH (09:08)
[2016-10-31] MEDS: SACCHAROMYCES BOULARDII 250 MG CAPSULE PO SCH ×2 (09:08→16:17)
[2016-10-31] MEDS: GABAPENTIN 100 MG CAPSULE PO SCH ×2 (09:08→20:00)
[2016-10-31] MEDS: diltiaZEM CD 120 MG CAPSULE PO SCH (09:08)
[2016-10-31] MEDS: NYSTATIN POWDER 15 GM TOP SCH ×2 (09:08→20:00)
[2016-10-31] MEDS: rOPINIRole 1 MG TABLET PO SCH ×3 (09:08→20:00)
[2016-10-31] MEDS: POLYETHYLENE GLYCOL 3350 17 GM PACKET PO SCH (09:08)
[2016-10-31] MEDS: FAMOTIDINE 20 MG TABLET PO SCH (09:08)
[2016-10-31] MEDS: cefTRIAXone 1 GM in SODIUM CHLORIDE 0.9% MINIBAG 100 ML IV SCH (09:09)
--- NOTE | 2016-10-31 11:50 | PROVIDER PROGRESS NOTE ---
Assessment/Plan - Problem List (1) Urinary tract infection Qualifiers: Urinary tract infection type: acute cystitis Hematuria presence: with hematuria Qualified Code(s): N30.01 - Acute cystitis with hematuria Assessment/Plan: Patient presented with lethargy and generalized weakness Low-grade fever at assisted living facility no fever here and no leukocytosis Patient was quite drowsy on presentation and remained drowsy while in the ER. Patient was too weak to get out of bed Urinalysis positive for nitrites, occult blood, large leukocyte esterase, greater than 25 WBCs and moderate bacteria. Patient admitted to the hospital for urinary tract infection given her generalized weakness and lethargy Plan: Ceftriaxone IV day 2 IV fluids Awaiting urine culture PT consultation today Patient more alert and awake still feels weak Improving Qualifiers: Urinary tract infection type: acute cystitis Hematuria presence: with hematuria Qualified Code(s): N30.01 - Acute cystitis with hematuria (2) KYREE (acute kidney injury) Conclusion/Plan: Patient's baseline creatinine is 1.0 on presentation today patient's creatinine is elevated to 1.4. Patient appears to have prerenal azotemia likely secondary to overdiuresis with Lasix and Zaroxolyn Plan: Hold Lasix and Zaroxolyn Give IV fluids with gentle hydration Sampler First improved to 1.3 today continue to monitor Avoid nephrotoxic agents. (3) Hypokalemia Conclusion/Plan: On presentation patient has hypokalemia with potassium of 2.9. This appears likely secondary to overdiuresis with Lasix and Zaroxolyn. Patient appears to be dry Plan: Replace potassium via IV and p.o. K improved to 3.2 today Monitor potassium (4) Congestive heart failure (CHF) Conclusion/Plan: Patient has history of diastolic heart failure with right-sided heart failure and a preserved ejection fraction. Patient's BNP is elevated at 1314 with a mildly elevated troponin of 0.17 Patient appears to be dry on examination and lab work appears to support the patient is dehydrated as she has a decreased potassium and acute kidney injury. The patient does have mild pulmonary vascular congestion on the chest x-ray but it is not changed from before. Patient does not have crackles on examination. It is slightly difficult to get an accurate volume status with this patient given that she does have edema in her legs however I feel that she is intravascularly depleted and therefore we will give her some gentle IV hydration and hold her Lasix and Zaroxolyn while she is being treated for urinary tract infection. BNP down to 1132 today Patient not SOA or hypoxic Seems to be stable Qualifiers: Congestive heart failure type: diastolic Congestive heart failure chronicity: acute on chronic Qualified Code(s): I50.33 - Acute on chronic diastolic (congestive) heart failure (5) Atrial fibrillation Conclusion/Plan: Patient has history of atrial fibrillation is on anticoagulation with Pradaxa and rate controlled with digoxin and diltiazem On presentation patient's rate is well controlled Patient has a chads 2 score of 3 Continue anticoagulation Continue diltiazem and digoxin Monitor on telemetry Stable - rate controlled Qualifiers: Atrial fibrillation type: chronic Qualified Code(s): I48.2 - Chronic atrial fibrillation (6) Hyponatremia Conclusion/Plan: Patient has chronic hyponatremia which appears likely to be hypervolemic hyponatremia as the patient has chronic edema from right-sided heart failure. Monitor sodium Stable (7) Hyperbilirubinemia Conclusion/Plan: Patient's bilirubin is elevated at 1.6 she also has an alk phos that is elevated to 221 This is likely secondary to hepatic congestion from right-sided heart failure Abd ultrasound pending (8) Hypothyroidism Conclusion/Plan: Patient has history of hypothyroidism Patient is on Synthroid at home we will continue her home dose of Synthroid TSH 5.22 Stable (9) Hypertension Conclusion/Plan: On presentation patient does have borderline blood pressure which is likely secondary to dehydration and infection We will monitor blood pressure closely We will continue the patient's diltiazem and digoxin but we will hold Lasix and Zaroxolyn for now. BP improved this am Qualifiers: Hypertension type: essential hypertension Qualified Code(s): I10 - Essential (primary) hypertension - Current Meds Current Meds: Current Medications Generic Name Dose Route Start Last Admin Trade Name Freq PRN Reason Stop Dose Admin Acetaminophen/Hydrocodone Bitart 1 tab 10/30/16 15:27 10/31/16 06:23 Chamberlain 5/325 PO 1 tab Q4HR PRN Administration Pain 5 to 7 Dabigatran 75 mg 10/30/16 21:00 10/30/16 21:08 Pradaxa PO 75 mg BID ANDRADE Administration Digoxin 125 mcg 10/31/16 09:00 10/31/16 09:08 Lanoxin PO 125 mcg DAILY ANDRADE Administration Diltiazem HCl 120 mg 10/31/16 09:00 10/31/16 09:08 Cardizem Cd PO 120 mg DAILY ANDRADE Administration Famotidine 20 mg 10/31/16 09:00 10/31/16 09:08 Pepcid PO 20 mg DAILY ANDRADE Administration Gabapentin 100 mg 10/30/16 21:00 10/31/16 09:08 Neurontin PO 100 mg BID ANDRADE Administration Potassium Chloride/Sodium Chloride 1,000 mls @ 75 mls/hr 10/30/16 16:00 06:23 Normal Saline 0.9% W/20 Meq Kcl IV 75 mls/hr .[id number] ANDRADE Administration Ceftriaxone Sodium 1 gm/ 100 mls @ 200 mls/hr 10/31/16 09:00 10/31/16 09:09 Sodium Chloride IV 200 mls/hr DAILY ANDRADE Administration Levothyroxine Sodium 50 mcg 10/31/16 07:00 10/31/16 06:24 Synthroid PO 50 mcg QDAC ANDRADE Administration Nystatin 1 applic 10/30/16 21:00 10/30/16 21:09 Nystop TOP 1 applic BID ANDRADE Administration Polyethylene Glycol 17 gm 10/31/16 09:00 10/31/16 09:08 Miralax PO 17 gm DAILY ANDRADE Administration Potassium Chloride 20 meq 10/31/16 09:00 10/31/16 09:08 K-Dur PO 20 meq DAILY ANDRADE Administration Ropinirole HCl 1 mg 10/30/16 17:00 10/31/16 09:08 Requip PO 1 mg 0900,1700 ANDRADE Administration Ropinirole HCl 2 mg 10/30/16 21:00 10/30/16 21:09 Requip PO 2 mg QPM ANDRADE Administration Saccharomyces Boulardii 250 mg 10/30/16 17:00 10/31/16 09:08 Florastor PO 250 mg BIDWM ANDRADE Administration Sodium Chloride 10 ml 10/30/16 22:00 10/31/16 06:24 Normal Saline Flush 0.9% IVP Not Given Q8HR ANDRADE - Lab Result Lab results reviewed: Yes Fish Bone Diagrams: 10/31/16 06:32 10/31/16 06:32 - EKG Results EKG Interpreted Independently: Yes - Diagnostic Imaging Results Diagnostic Imaging Results: Final report reviewed - Additional Planning Condition/Complexity: Guarded My Orders: My Active Orders 10/31/16 09:00 diltiaZEM CD [Cardizem Cd] 120 mg PO DAILY 10/31/16 Lunch Soft Mechanical Diet [DIET] Consult/Specialty: PT Plan Discussed with:: Patient Time Spent: 31-60 minutes Subjective - Subjective Patient Reports: Feeling Better (The patient is more alert and states she feels much better but still is weak. She denies any fevers or chills, she denies any dysuria.) Objective Vital Signs: Vital Signs - 24 hr 10/30/16 10/30/16 10/30/16 15:29 15:32 16:24 Temperature Heart Rate 78 85 80 Heart Rate [ Apical] Heart Rate [ Brachial] Respiratory 16 15 12 Rate Blood Pressure 79/52 L 101/62 110/58 L Blood Pressure [Right] O2 Saturation 94 97 97 10/30/16 10/30/16 10/30/16 16:26 16:56 19:53 Temperature 36.3 C L 363.2 C H Heart Rate 87 Heart Rate [ 97 95 Apical] Heart Rate [ Brachial] Respiratory 14 17 18 Rate Blood Pressure 110/58 L Blood Pressure 95/58 L 106/68 [Right] O2 Saturation 95 97 98 10/30/16 10/31/16 10/31/16 21:08 00:17 05:26 Temperature 36.4 C L Heart Rate Heart Rate [ Apical] Heart Rate [ 86 57 L Brachial] Respiratory 16 Rate Blood Pressure 106/68 Blood Pressure 99/72 109/68 [Right] O2 Saturation 100 95 10/31/16 06:36 Temperature Heart Rate Heart Rate [ Apical] Heart Rate [ Brachial] Respiratory Rate Blood Pressure 109/66 Blood Pressure [Right] O2 Saturation Oxygen O2 Source Nasal cannula I&O (Last 24 Hrs): Intake and Output Totals x24h 10/29/16 10/30/16 10/31/16 23:59 23:59 23:59 Intake Total 540 987 Balance 540 987 General: Alert, Oriented x3, Cooperative, No acute distress HEENT: Atraumatic, PERRLA, EOMI, Other (Dry mucus membranes) Neck: Supple, No JVD, No thyromegaly, +2 carotid pulse wo bruit, No LAD Lymphatic: no adenopathy Neuro: Alert, Non Focal, CN 2-12 Grossly Intact, Oriented Times 3 Cardiovascular: No murmurs, Other (Irregularily irregular) Respiratory: Chest non-tender, No respiratory distress, Breath sounds nml Abdomen: Normal bowel sounds, Soft, No hepatospenomegaly, Other (MIld RUQ tenderness) Extremities: No clubbing, No cyanosis, Normal pulses, Other (Bilateral LE edema 2+) Skin: No rashes, No breakdown - Results Results: Laboratory Results WBC 5.0 x10^3/uL (4.8-10.8) 10/31/16 06:32 RBC 4.12 10^6/uL (4.20-5.40) L 10/31/16 06:32 Hgb 12.7 g/dL (12.0-16.0) 10/31/16 06:32 Hct 37.9 % (37.0-47.0) 10/31/16 06:32 MCV 92.0 fL (81.0-99.0) 10/31/16 06:32 MCH 30.8 pg (27.0-31.0) 10/31/16 06:32 MCHC 33.5 g/dL (32.0-36.0) 10/31/16 06:32 RDW 16.1 % (12.0-15.0) H 10/31/16 06:32 Plt Count 122 10^3/uL (130-450) L 10/31/16 06:32 MPV 7.8 fL (7.9-10.8) L 10/31/16 06:32 Neut # 3.5 10^3/uL (1.5-6.6) 10/31/16 06:32 Lymph # 0.8 10^3/uL (1.5-3.5) L 10/31/16 06:32 O'Brien # 0.5 10^3/uL (0.0-1.0) 10/31/16 06:32 Eos # 0.1 10^3/uL (0.0-0.7) 10/31/16 06:32 Baso # 0.1 10^3/uL (0.0-0.1) 10/31/16 06:32 Absolute Nucleated RBC 0.00 x10^3/uL 10/31/16 06:32 Nucleated RBCs 0.0 /100WBC 10/31/16 06:32 Sodium 130 mmol/L (135-145) L 10/31/16 06:32 Potassium 3.2 mmol/L (3.5-5.0) L 10/31/16 06:32 Chloride 93 mmol/L (101-111) L 10/31/16 06:32 Carbon Dioxide 28 mmol/L (21-32) 10/31/16 06:32 Anion Gap 9.0 (6-13) 10/31/16 06:32 BUN 63 mg/dL (6-20) H 10/31/16 06:32 Creatinine 1.3 mg/dL (0.4-1.0) H 10/31/16 06:32 Estimated GFR (MDRD) 39 (>89) L 10/31/16 06:32 Glucose 82 mg/dL (70-100) 10/31/16 06:32 Lactic Acid 1.2 mmol/L (0.5-2.2) 10/30/16 09:15 Calcium 8.9 mg/dL (8.5-10.3) 10/31/16 06:32 Phosphorus 3.0 mg/dL (2.5-4.6) 10/31/16 06:32 Magnesium 1.8 mg/dL (1.7-2.8) 10/31/16 06:32 Total Bilirubin 1.7 mg/dL (0.2-1.0) H 10/31/16 06:32 AST 44 IU/L (10-42) H 10/31/16 06:32 ALT 24 IU/L (10-60) 10/31/16 06:32 Alkaline Phosphatase 230 IU/L (42-121) H 10/31/16 06:32 Troponin I 0.17 ng/mL (<0.49) 10/30/16 09:15 B-Natriuretic Peptide 1132 pg/mL (5-100) H 10/31/16 06:32 Total Protein 7.1 g/dL (6.7-8.2) 10/31/16 06:32 Albumin 2.9 g/dL (3.2-5.5) L 10/31/16 06:32 Globulin 4.2 g/dL (2.1-4.2) 10/31/16 06:32 Albumin/Globulin Ratio 0.7 (1.0-2.2) L 10/31/16 06:32 Lipase 48 U/L (22-51) 10/30/16 09:15 TSH 5.22 uIU/mL (0.34-5.60) 10/31/16 06:32 Urine Color YELLOW 10/30/16 09:30 Urine Clarity CLEAR (CLEAR) 10/30/16 09:30 Urine pH 7.0 PH (5.0-7.5) 10/30/16 09:30 Ur Specific [place] 1.010 (1.002-1.030) 10/30/16 09:30 Urine Protein NEGATIVE mg/dL (NEGATIVE) 10/30/16 09:30 Urine Glucose (UA) NEGATIVE mg/dL (NEGATIVE) 10/30/16 09:30 Urine Ketones NEGATIVE mg/dL (NEGATIVE) 10/30/16 09:30 Urine Occult Blood LARGE (NEGATIVE) H 10/30/16 09:30 Urine Nitrite POSITIVE (NEGATIVE) H 10/30/16 09:30 Urine Bilirubin NEGATIVE (NEGATIVE) 10/30/16 09:30 Urine Urobilinogen 0.2 (NORMAL) E.U./dL (NORMAL) 10/30/16 09:30 Ur Leukocyte Esterase LARGE (NEGATIVE) H 10/30/16 09:30 Urine RBC 6-10 /HPF (0-5) H 10/30/16 09:30 Urine WBC >25 /HPF (0-5) H 10/30/16 09:30 Urine WBC Clumps PRESENT 10/30/16 09:30 Ur Squamous Epith Cells RARE Squamous (<= Few) 10/30/16 09:30 Urine Bacteria Moderate /HPF (None Seen) H 10/30/16 09:30 Urine Mucus Few Strands 10/30/16 09:30 Ur Microscopic Review INDICATED 10/30/16 09:30 Urine Culture Comments INDICATED 10/30/16 09:30 Last Dose Date UNK 10/30/16 09:15 Last Dose Time UNK 10/30/16 09:15 Digoxin 0.9 ng/mL 10/30/16 09:15 - Procedures Procedures: Procedures VENOUS CATHETERIZATION NEC (09/18/12)
--- NOTE | 2016-10-31 12:05 | Ultrasound Preliminary Report ---
Exam: US Abdomen Complete IMPRESSION: 1.Heterogeneous / nodular liver suspicious for cirrhosis. 2.Mild ascites. Small bilateral pleural effusions. [facility] SITE ID: [id number]
--- NOTE | 2016-10-31 12:07 | Ultrasound Report ---
EXAM: ABDOMEN ULTRASOUND EXAM DATE: 10/31/2016 10:24 AM. CLINICAL HISTORY: Elevated Bili and Alk Phos in patient with lethargy. COMPARISON: None. TECHNIQUE: Real-time scanning was performed with static images obtained. FINDINGS: Liver: Heterogeneous and nodular. No discrete masses. 17.6 cm in length.Main portal vein flow: Hepato petal. Gallbladder: No stones, wall thickening, or sonographic Ruiz's sign. Biliary System: Common bile duct measures 5.2 mm. No intrahepatic or extrahepatic ductal dilatation. Pancreas: Obscured by bowel gas. Kidneys: Right: 9.5 cm longitudinally. Normal. No contour-deforming mass, stones, or hydronephrosis. Left: 10.6 cm longitudinally. Normal. No contour-deforming mass, stones, or hydronephrosis. Spleen: 13 cm. Normal echotexture. Aorta and Inferior Vena Cava: Unremarkable. Other: Small amount of ascites. Bilateral pleural effusions. IMPRESSION: 1.Heterogeneous / nodular liver suspicious for cirrhosis. 2. Mild ascites. Small bilateral pleural effusions. [facility] Referring Provider Line: [phone] SITE ID: [id number]
[2016-11-01] MEDS: LEVOTHYROXINE 25 MCG TABLET PO SCH (06:39)
[2016-11-01 06:59] LABS: BASOPHILS # (AUTO) 0.1 10^3/uL (0.0-0.1); BASOPHILS % (AUTO) 0.8 %; EOSINOPHILS # (AUTO) 0.1 10^3/uL (0.0-0.7); EOSINOPHILS % (AUTO) 1.8 %; HCT - HEMATOCRIT 38.9 % (37.0-47.0); LYMPHOCYTES # (AUTO) 0.8 10^3/uL (1.5-3.5); LYMPHOCYTES % (AUTO) 11.6 %; MEAN CORPUSCULAR HEMOGLOBIN 31.1 pg (27.0-31.0); MEAN CORPUSCULAR HGB CONC 33.3 g/dL (32.0-36.0); MEAN CORPUSCULAR VOLUME 93.2 fL (81.0-99.0); MEAN PLATELET VOLUME 8.1 fL (7.9-10.8); MONOCYTES # (AUTO) 0.7 10^3/uL (0.0-1.0); MONOCYTES % (AUTO) 9.4 %; NEUTROPHILS # (AUTO) 5.4 10^3/uL (1.5-6.6); NEUTROPHILS % (AUTO) 76.4 %; NUCLEATED RED BLOOD CELLS AUTO 0.1 /100WBC; RED BLOOD COUNT 4.18 10^6/uL (4.20-5.40); RED CELL DISTRIBUTION WIDTH 15.8 % (12.0-15.0)
[2016-11-01 07:11] LABS: ALBUMIN/GLOBULIN RATIO 0.7 (1.0-2.2); BILIRUBIN,TOTAL 1.7 mg/dL (0.2-1.0); MAGNESIUM 1.9 mg/dL (1.7-2.8); PHOSPHORUS 2.9 mg/dL (2.5-4.6)
[2016-11-01] MEDS: NS W/20 MEQ KCL 1,000 ML IV SCH ×2 (09:25→21:01)
[2016-11-01] MEDS: rOPINIRole 1 MG TABLET PO SCH ×3 (09:25→21:00)
[2016-11-01] MEDS: cefTRIAXone 1 GM in SODIUM CHLORIDE 0.9% MINIBAG 100 ML IV SCH (09:25)
[2016-11-01] MEDS: DIGOXIN 125 MCG TABLET PO SCH (09:26)
[2016-11-01] MEDS: SACCHAROMYCES BOULARDII 250 MG CAPSULE PO SCH ×2 (09:26→17:45)
[2016-11-01] MEDS: POTASSIUM CHLORIDE 20 MEQ TABLET PO SCH (09:26)
[2016-11-01] MEDS: GABAPENTIN 100 MG CAPSULE PO SCH ×2 (09:26→21:00)
[2016-11-01] MEDS: DABIGATRAN 75 MG CAPSULE PO SCH ×2 (09:26→21:00)
[2016-11-01] MEDS: FAMOTIDINE 20 MG TABLET PO SCH (09:26)
[2016-11-01] MEDS: POLYETHYLENE GLYCOL 3350 17 GM PACKET PO SCH (09:27)
[2016-11-01] MEDS: NYSTATIN POWDER 15 GM TOP SCH ×2 (09:27→21:01)
[2016-11-01] MEDS ORDERED: hydrOXYzine PAMOATE 25 MG CAPSULE PO PRN (10:09)
[2016-11-01] MEDS: SODIUM CHLORIDE FLUSH 0.9% 10 ML SYRINGE IVP SCH ×3 (10:56→21:02)
[2016-11-01] MEDS: HYDROCORTISONE 1% CREAM 28 GM TUBE TOP SCH ×2 (11:37→21:01)
[2016-11-01] MEDS: diltiaZEM CD 120 MG CAPSULE PO SCH (11:37)
[2016-11-01] MEDS ORDERED: METOPROLOL 5 MG/5 ML VIAL IVP SCH (17:32)
--- NOTE | 2016-11-01 17:33 | PROVIDER PROGRESS NOTE ---
Assessment/Plan - Problem List (1) Urinary tract infection Qualifiers: Urinary tract infection type: acute cystitis Hematuria presence: with hematuria Qualified Code(s): N30.01 - Acute cystitis with hematuria Assessment/Plan: Patient presented with lethargy and generalized weakness Low-grade fever at assisted living facility no fever here and no leukocytosis Patient was quite drowsy on presentation and remained drowsy while in the ER. Patient was too weak to get out of bed Urinalysis positive for nitrites, occult blood, large leukocyte esterase, greater than 25 WBCs and moderate bacteria. Patient admitted to the hospital for urinary tract infection given her generalized weakness and lethargy Plan: Ceftriaxone IV day 3 IV fluids Urine cx grew aerococcus virdans PT working with patient Patient more alert and awake still feels weak Improving patient needs to be assessed by coordinator from [facility] before returning there she will be assessed tomorrow morning Qualifiers: Urinary tract infection type: acute cystitis Hematuria presence: with hematuria Qualified Code(s): N30.01 - Acute cystitis with hematuria (2) KYREE (acute kidney injury) Conclusion/Plan: Patient's baseline creatinine is 1.0 on presentation today patient's creatinine is elevated to 1.4. Patient appears to have prerenal azotemia likely secondary to overdiuresis with Lasix and Zaroxolyn Plan: Holding Lasix and Zaroxolyn Given IV fluids with gentle hydration [employer] improved to 1.0 Avoid nephrotoxic agents. Resolved (3) Hypokalemia Conclusion/Plan: On presentation patient has hypokalemia with potassium of 2.9. This appears likely secondary to overdiuresis with Lasix and Zaroxolyn. Patient appears to be dry K up to 4.0 Resolved (4) Congestive heart failure (CHF) Conclusion/Plan: Patient has history of diastolic heart failure with right-sided heart failure and a preserved ejection fraction. Patient's BNP is elevated at 1314 with a mildly elevated troponin of 0.17 Patient appears to be dry on examination and lab work appears to support the patient is dehydrated as she has a decreased potassium and acute kidney injury. The patient does have mild pulmonary vascular congestion on the chest x-ray but it is not changed from before. Patient does not have crackles on examination. It is slightly difficult to get an accurate volume status with this patient given that she does have edema in her legs however I feel that she is intravascularly depleted and therefore we will give her some gentle IV hydration and hold her Lasix and Zaroxolyn while she is being treated for urinary tract infection. BNP down to 943 today Patient not SOA or hypoxic Seems to be stable Will stop zaroxyln once ready for discharge and place on aldactone as patient has cirrhosis of her liver according to abd us Qualifiers: Congestive heart failure type: diastolic Congestive heart failure chronicity: acute on chronic Qualified Code(s): I50.33 - Acute on chronic diastolic (congestive) heart failure (5) Atrial fibrillation Conclusion/Plan: Patient has history of atrial fibrillation is on anticoagulation with Pradaxa and rate controlled with digoxin and diltiazem On presentation patient's rate is well controlled Patient has a chads 2 score of 3 Continue anticoagulation Continue diltiazem and digoxin Monitor on telemetry HR uncontrolled today will increase dose to 240 mg daily Qualifiers: Atrial fibrillation type: chronic Qualified Code(s): I48.2 - Chronic atrial fibrillation (6) Hyponatremia Conclusion/Plan: Patient has chronic hyponatremia which appears likely to be hypervolemic hyponatremia as the patient has chronic edema from right-sided heart failure. Monitor sodium Stable (7) Hyperbilirubinemia Conclusion/Plan: Patient's bilirubin is elevated at 1.6 she also has an alk phos that is elevated to 221 Abd ultrasound shows patient has cirrhosis which is likely causing her LE swelling Patient will be placed on lasix and aldactone at discharge once hydrated Patient does not need further work up given her age as she appears stable we will send off a hepatitis panel (8) Hypothyroidism Conclusion/Plan: Patient has history of hypothyroidism Patient is on Synthroid at home we will continue her home dose of Synthroid TSH 5.22 Stable (9) Hypertension Conclusion/Plan: On presentation patient does have borderline blood pressure which is likely secondary to dehydration and infection We will monitor blood pressure closely We will continue the patient's diltiazem but we will hold Lasix and Zaroxolyn for now. BP improved this am Qualifiers: Hypertension type: essential hypertension Qualified Code(s): I10 - Essential (primary) hypertension - Current Meds Current Meds: Current Medications Generic Name Dose Route Start Last Admin Trade Name Freq PRN Reason Stop Dose Admin Acetaminophen/Hydrocodone Bitart 1 tab 10/30/16 15:27 10/31/16 20:00 [place] 5/325 PO 1 tab Q4HR PRN Administration Pain 5 to 7 Dabigatran 75 mg 10/30/16 21:00 11/01/16 09:26 Pradaxa PO 75 mg BID ANDRADE Administration Digoxin 125 mcg 10/31/16 09:00 11/01/16 09:26 Lanoxin PO 125 mcg DAILY ANDRADE Administration Diltiazem HCl 120 mg 10/31/16 09:00 11/01/16 11:37 Cardizem Cd PO 120 mg DAILY ANDRADE Administration Famotidine 20 mg 10/31/16 09:00 11/01/16 09:26 Pepcid PO 20 mg DAILY ANDRADE Administration Gabapentin 100 mg 10/30/16 21:00 11/01/16 09:26 Neurontin PO 100 mg BID ANDRADE Administration Hydrocortisone 1 applic 11/01/16 11:00 11/01/16 11:37 Hydrocortisone TOP 1 applic BID ANDRADE Administration Potassium Chloride/Sodium Chloride 1,000 mls @ 75 mls/hr 10/30/16 16:00 09:25 Normal Saline 0.9% W/20 Meq Kcl IV 75 mls/hr .[id number] ANDRADE Administration Ceftriaxone Sodium 1 gm/ 100 mls @ 200 mls/hr 10/31/16 09:00 11/01/16 09:25 Sodium Chloride IV 200 mls/hr DAILY ANDRADE Administration Levothyroxine Sodium 50 mcg 10/31/16 07:00 11/01/16 06:39 Synthroid PO 50 mcg QDAC ANDRADE Administration Nystatin 1 applic 10/30/16 21:00 11/01/16 09:27 Nystop TOP 1 applic BID ANDRADE Administration Polyethylene Glycol 17 gm 10/31/16 09:00 11/01/16 09:27 Miralax PO 17 gm DAILY ANDRADE Administration Potassium Chloride 20 meq 10/31/16 09:00 11/01/16 09:26 K-Dur PO 20 meq DAILY ANDRADE Administration Ropinirole HCl 1 mg 10/30/16 17:00 11/01/16 09:25 Requip PO 1 mg 0900,1700 ANDRADE Administration Ropinirole HCl 2 mg 10/30/16 21:00 10/31/16 20:00 Requip PO 2 mg QPM ANDRADE Administration Saccharomyces Boulardii 250 mg 10/30/16 17:00 11/01/16 09:26 Florastor PO 250 mg BIDWM ANDRADE Administration Sodium Chloride 10 ml 10/30/16 22:00 11/01/16 11:15 Normal Saline Flush 0.9% IVP Not Given Q8HR ANDRADE - Lab Result Lab results reviewed: Yes Fish Bone Diagrams: 11/01/16 06:39 11/01/16 06:39 - EKG Results EKG Interpreted Independently: Yes - Diagnostic Imaging Results Diagnostic Imaging Results: Final report reviewed - Additional Planning Condition/Complexity: Improved My Orders: My Active Orders 11/01/16 10:09 hydrOXYzine PAMOATE [Vistaril] 25 mg PO QPM PRN 11/01/16 11:00 Hydrocortisone 1% Cream [Hydrocortisone] 1 applic TOP BID Consult/Specialty: PT Plan Discussed with:: Patient Time Spent: 31-60 minutes Subjective - Subjective Patient Reports: Feeling Better, Resting Comfortably (The patient states she is still weak but feels much better. Denies any fevers or chills.) Nursing Reports: No Complaints Objective Vital Signs: Vital Signs - 24 hr 10/31/16 11/01/16 11/01/16 20:21 01:28 05:55 Temperature 36.3 C L 36.3 C L 36.5 C Heart Rate [ 97 80 92 Brachial] Heart Rate [ Sitting] Heart Rate [ Supine] Respiratory 20 18 18 Rate Blood Pressure 125/81 H 109/59 L 110/66 [Right Brachial artery] Blood Pressure [Sitting] Blood Pressure [Supine] O2 Saturation 97 97 94 O2 Saturation [ With Activity] 11/01/16 11/01/16 11/01/16 09:23 10:45 15:29 Temperature 36.7 C Heart Rate [ 135 H 114 H Brachial] Heart Rate [ 125 H Sitting] Heart Rate [ 114 H Supine] Respiratory 24 Rate Blood Pressure 126/79 131/82 H [Right Brachial artery] Blood Pressure 124/99 H [Sitting] Blood Pressure 137/86 H [Supine] O2 Saturation 95 O2 Saturation [ 97 With Activity] Oxygen O2 Source [With Activity] Nasal cannula O2 Source Nasal cannula I&O (Last 24 Hrs): Intake and Output Totals x24h 10/30/16 10/31/16 11/01/16 23:59 23:59 23:59 Intake Total 540 3097 1476 Output Total 100 Balance 540 2997 1476 General: Alert, Oriented x3, Cooperative, No acute distress HEENT: Atraumatic, PERRLA, EOMI, Mucous membr. moist/pink, Other Neck: Supple, No JVD, No thyromegaly, +2 carotid pulse wo bruit, No LAD Lymphatic: no adenopathy Neuro: Alert, Non Focal, CN 2-12 Grossly Intact, Oriented Times 3 Cardiovascular: No murmurs, Other (Irregular with tachycardia) Respiratory: Chest non-tender, No respiratory distress Abdomen: Normal bowel sounds, Soft, No tenderness, No hepatospenomegaly Extremities: No clubbing, No cyanosis, Normal pulses, Other (BIlateral LE edema) Skin: No rashes, No breakdown - Results Results: Laboratory Results WBC 7.0 x10^3/uL (4.8-10.8) 11/01/16 06:39 RBC 4.18 10^6/uL (4.20-5.40) L 11/01/16 06:39 Hgb 13.0 g/dL (12.0-16.0) 11/01/16 06:39 Hct 38.9 % (37.0-47.0) 11/01/16 06:39 MCV 93.2 fL (81.0-99.0) 11/01/16 06:39 MCH 31.1 pg (27.0-31.0) H 11/01/16 06:39 MCHC 33.3 g/dL (32.0-36.0) 11/01/16 06:39 RDW 15.8 % (12.0-15.0) H 11/01/16 06:39 Plt Count 141 10^3/uL (130-450) 11/01/16 06:39 MPV 8.1 fL (7.9-10.8) 11/01/16 06:39 Neut # 5.4 10^3/uL (1.5-6.6) 11/01/16 06:39 Lymph # 0.8 10^3/uL (1.5-3.5) L 11/01/16 06:39 [place] # 0.7 10^3/uL (0.0-1.0) 11/01/16 06:39 Eos # 0.1 10^3/uL (0.0-0.7) 11/01/16 06:39 Baso # 0.1 10^3/uL (0.0-0.1) 11/01/16 06:39 Absolute Nucleated RBC 0.01 x10^3/uL 11/01/16 06:39 Nucleated RBCs 0.1 /100WBC 11/01/16 06:39 Sodium 132 mmol/L (135-145) L 11/01/16 06:39 Potassium 4.0 mmol/L (3.5-5.0) 11/01/16 06:39 Chloride 97 mmol/L (101-111) L 11/01/16 06:39 Carbon Dioxide 24 mmol/L (21-32) 11/01/16 06:39 Anion Gap 11.0 (6-13) 11/01/16 06:39 BUN 55 mg/dL (6-20) H 11/01/16 06:39 Creatinine 1.0 mg/dL (0.4-1.0) 11/01/16 06:39 Estimated GFR (MDRD) 52 (>89) L 11/01/16 06:39 Glucose 96 mg/dL (70-100) 11/01/16 06:39 Lactic Acid 1.2 mmol/L (0.5-2.2) 10/30/16 09:15 Calcium 9.0 mg/dL (8.5-10.3) 11/01/16 06:39 Phosphorus 2.9 mg/dL (2.5-4.6) 11/01/16 06:39 Magnesium 1.9 mg/dL (1.7-2.8) 11/01/16 06:39 Total Bilirubin 1.7 mg/dL (0.2-1.0) H 11/01/16 06:39 AST 44 IU/L (10-42) H 11/01/16 06:39 ALT 24 IU/L (10-60) 11/01/16 06:39 Alkaline Phosphatase 254 IU/L (42-121) H 11/01/16 06:39 Troponin I 0.17 ng/mL (<0.49) 10/30/16 09:15 B-Natriuretic Peptide 943 pg/mL (5-100) H 11/01/16 06:39 Total Protein 8.0 g/dL (6.7-8.2) 11/01/16 06:39 Albumin 3.2 g/dL (3.2-5.5) 11/01/16 06:39 Globulin 4.8 g/dL (2.1-4.2) H 11/01/16 06:39 Albumin/Globulin Ratio 0.7 (1.0-2.2) L 11/01/16 06:39 Lipase 48 U/L (22-51) 10/30/16 09:15 TSH 5.22 uIU/mL (0.34-5.60) 10/31/16 06:32 Urine Color YELLOW 10/30/16 09:30 Urine Clarity CLEAR (CLEAR) 10/30/16 09:30 Urine pH 7.0 PH (5.0-7.5) 10/30/16 09:30 Ur Specific [place] 1.010 (1.002-1.030) 10/30/16 09:30 Urine Protein NEGATIVE mg/dL (NEGATIVE) 10/30/16 09:30 Urine Glucose (UA) NEGATIVE mg/dL (NEGATIVE) 10/30/16 09:30 Urine Ketones NEGATIVE mg/dL (NEGATIVE) 10/30/16 09:30 Urine Occult Blood LARGE (NEGATIVE) H 10/30/16 09:30 Urine Nitrite POSITIVE (NEGATIVE) H 10/30/16 09:30 Urine Bilirubin NEGATIVE (NEGATIVE) 10/30/16 09:30 Urine Urobilinogen 0.2 (NORMAL) E.U./dL (NORMAL) 10/30/16 09:30 Ur Leukocyte Esterase LARGE (NEGATIVE) H 10/30/16 09:30 Urine RBC 6-10 /HPF (0-5) H 10/30/16 09:30 Urine WBC >25 /HPF (0-5) H 10/30/16 09:30 Urine WBC Clumps PRESENT 10/30/16 09:30 Ur Squamous Epith Cells RARE Squamous (<= Few) 10/30/16 09:30 Urine Bacteria Moderate /HPF (None Seen) H 10/30/16 09:30 Urine Mucus Few Strands 10/30/16 09:30 Ur Microscopic Review INDICATED 10/30/16 09:30 Urine Culture Comments INDICATED 10/30/16 09:30 Last Dose Date UNK 10/30/16 09:15 Last Dose Time UNK 10/30/16 09:15 Digoxin 0.9 ng/mL 10/30/16 09:15 - Procedures Procedures: Procedures VENOUS CATHETERIZATION NEC (09/18/12)
[2016-11-01] MEDS: HYDROcod/ACETAM 5/325 MG TABLET PO PRN (17:46)
[2016-11-02 06:42] LABS: BASOPHILS # (AUTO) 0.1 10^3/uL (0.0-0.1); BASOPHILS % (AUTO) 1.9 %; EOSINOPHILS # (AUTO) 0.1 10^3/uL (0.0-0.7); HCT - HEMATOCRIT 36.7 % (37.0-47.0); HGB - HEMOGLOBIN 12.2 g/dL (12.0-16.0); LYMPHOCYTES # (AUTO) 0.8 10^3/uL (1.5-3.5); LYMPHOCYTES % (AUTO) 13.9 %; MEAN CORPUSCULAR HEMOGLOBIN 31.1 pg (27.0-31.0); MEAN CORPUSCULAR HGB CONC 33.4 g/dL (32.0-36.0); MEAN CORPUSCULAR VOLUME 93.1 fL (81.0-99.0); MEAN PLATELET VOLUME 7.9 fL (7.9-10.8); MONOCYTES # (AUTO) 0.7 10^3/uL (0.0-1.0); MONOCYTES % (AUTO) 11.3 %; NEUTROPHILS # (AUTO) 4.3 10^3/uL (1.5-6.6); NEUTROPHILS % (AUTO) 70.9 %; RED BLOOD COUNT 3.94 10^6/uL (4.20-5.40); RED CELL DISTRIBUTION WIDTH 16.2 % (12.0-15.0); UNCORRECTED WHITE BLOOD COUNT 6.1 x10^3/uL; WHITE BLOOD COUNT 6.1 x10^3/uL (4.8-10.8)
[2016-11-02] MEDS: LEVOTHYROXINE 25 MCG TABLET PO SCH (06:45)
[2016-11-02] MEDS: SODIUM CHLORIDE FLUSH 0.9% 10 ML SYRINGE IVP SCH ×2 (06:50→14:26)
[2016-11-02 06:52] LABS: ALBUMIN/GLOBULIN RATIO 0.6 (1.0-2.2); BILIRUBIN,TOTAL 1.6 mg/dL (0.2-1.0); CALCIUM 8.8 mg/dL (8.5-10.3); CREATININE 0.9 mg/dL (0.4-1.0); MAGNESIUM 1.9 mg/dL (1.7-2.8); PHOSPHORUS 2.4 mg/dL (2.5-4.6); POTASSIUM 4.4 mmol/L (3.5-5.0); TOTAL PROTEIN 7.4 g/dL (6.7-8.2)
[2016-11-02] MEDS ORDERED: SPIRONOLACTONE 25 MG TABLET PO SCH (09:00)
[2016-11-02] MEDS ORDERED: FUROSEMIDE 40 MG TABLET PO SCH (09:00)
[2016-11-02] MEDS ORDERED: diltiaZEM CD 120 MG CAPSULE PO SCH (09:00)
[2016-11-02] MEDS ORDERED: SODIUM CHLORIDE 0.9% 250 ML IV ONE (11:27)
[2016-11-02] MEDS: SACCHAROMYCES BOULARDII 250 MG CAPSULE PO SCH (11:38)
[2016-11-02] MEDS: FAMOTIDINE 20 MG TABLET PO SCH (11:39)
[2016-11-02] MEDS: GABAPENTIN 100 MG CAPSULE PO SCH (11:39)
[2016-11-02] MEDS: DIGOXIN 125 MCG TABLET PO SCH (11:39)
[2016-11-02] MEDS: POTASSIUM CHLORIDE 20 MEQ TABLET PO SCH (11:40)
[2016-11-02] MEDS: POLYETHYLENE GLYCOL 3350 17 GM PACKET PO SCH (11:40)
[2016-11-02] MEDS: rOPINIRole 1 MG TABLET PO SCH (11:40)
[2016-11-02] MEDS: cefTRIAXone 1 GM in SODIUM CHLORIDE 0.9% MINIBAG 100 ML IV SCH (11:41)
[2016-11-02] MEDS: DABIGATRAN 75 MG CAPSULE PO SCH (11:41)
[2016-11-02] MEDS: NYSTATIN POWDER 15 GM TOP SCH (11:46)
[2016-11-02] MEDS: HYDROCORTISONE 1% CREAM 28 GM TUBE TOP SCH (11:47)
--- NOTE | 2016-11-02 12:06 | Discharge Plan ---
Discharge Plan Disposition: 03 SNF DC/Xfer Condition: Good Prescriptions: Cephalexin [Keflex] 250 mg PO Q6H #16 capsule Diet: Regular Activity Restrictions: Activity as Tolerated Shower Restrictions: No Driving Restrictions: No Assistance Devices: Walker Weight Bearing: Full Weight No Smoking: If you smoke, Please STOP! Call for help.
--- NOTE | 2016-11-02 12:15 | DISCHARGE SUMMARY ---
Discharge Summary Admit Date: 10/30/16 Discharge Date: 11/02/16 Discharging Provider: Audi Coyne MD Primary Care Provider: Alf Ruth Code Status: Do Not Attempt Resuscitation Condition at Discharge: Good Discharge Disposition: 03 SNF DC/Xfer Discharge Facility Name: [facility] - DIAGNOSES Admission Diagnoses: 1. Urinary tract infection 2. Acute kidney injury 3. Hypokalemia 4. Congestive heart failure 5. Atrial fibrillation 6. Hyponatremia 7. Hyperbilirubinemia 8. Hypothyroidism 9. Hypertension Discharge Diagnoses with Status of Each Condition: 1. Urinary tract infection: Improving 2. Acute kidney injury: Resolved 3. Hypokalemia: Resolved 4. Congestive heart failure: Stable 5. Atrial fibrillation: Stable 6. Hyponatremia: Stable 7. Hyperbilirubinemia: Stable 8. Liver cirrhosis: Stable 9. Hypothyroidism: Stable 10. Hypertension: Stable - HPI History of Present Illness: Patient is a pleasant 89-year-old female with a past medical history significant for atrial fibrillation on Pradaxa, coronary artery disease, congestive heart failure on Lasix and Zaroxolyn, hypertension, gout, hypothyroidism, pacemaker placement and hyperlipidemia who presented to the emergency department with a chief complaint of lethargy. The patient states that she was in her her normal state of health until the last few days when she states that she has been feeling weak and sleepy throughout the day. She states that today when she tried to get out of bed she was too weak to stand. According to the staff at her assisted living facility ([facility]) the patient was very difficult to arouse this morning and continued to be lethargic even after she got up. At the assisted living facility she was found to have a low- grade fever and was sent to the emergency department. The patient denies having had any headaches, blurred vision, runny nose, sore throat, cough, fevers , chills, shortness of air, orthopnea, she does admit to chronic lower extremity swelling, she denies any chest pain, abdominal pain, nausea, vomiting , diarrhea, constipation, muscle aches, joint pains, she admits to decreased appetite the last couple of days, but she denies recent unintentional weight loss or any focal neurologic deficits. On presentation to the emergency department the patient was afebrile, her heart rate was in the 90s and she was borderline hypotensive with a blood pressure of 90/54. The patient did appear to be lethargic and was difficult to arouse initially. The patient was given 500 mL of normal saline when she arrived in the emergency department. The patient underwent routine lab work and a urine analysis. Lab work revealed no leukocytosis, patient's sodium was decreased at 130, her potassium was low at 2.9 and her BNP was elevated at 1314. The patient 's urine analysis showed positive nitrates, large leukocyte esterase, greater than 25 WBCs and moderate bacteria consistent with urinary tract infection. The patient was given ceftriaxone in the emergency department and an attempt was made to ambulate the patient to send her back to her assisted living facility. When nursing tried to get the patient to ambulate she was too weak to stand and given her generalized weakness and continued drowsiness the patient was admitted to the hospital for urinary tract infection. - HOSPITAL COURSE Hospital Course: (1) Urinary tract infection Qualifiers: Urinary tract infection type: acute cystitis Hematuria presence: with hematuria Qualified Code(s): N30.01 - Acute cystitis with hematuria Assessment/Plan: Patient presented with lethargy and generalized weakness Low-grade fever at assisted living facility no fever here and no leukocytosis Patient was quite drowsy on presentation and remained drowsy while in the ER. Patient was too weak to get out of bed Urinalysis positive for nitrites, occult blood, large leukocyte esterase, greater than 25 WBCs and moderate bacteria. Patient admitted to the hospital for urinary tract infection given her generalized weakness and lethargy Ceftriaxone IV x 3 days Urine cx grew aerococcus virdans PT working with patient Patient more alert and awake but was still weak see by PT who recommended SNF patient discharged to [facility] for rehab Resolving at discharge Will continue Keflex 250 mg q6 hours for 4 days Qualifiers: Urinary tract infection type: acute cystitis Hematuria presence: with hematuria Qualified Code(s): N30.01 - Acute cystitis with hematuria (2) KYREE (acute kidney injury) Conclusion/Plan: Patient's baseline creatinine is 1.0 on presentation today patient's creatinine is elevated to 1.4. Patient appears to have prerenal azotemia likely secondary to overdiuresis with Lasix and Zaroxolyn Given IV fluids with gentle hydration and Lasix and Zaroxolyn held Enrollment Representative improved to 1.0 Avoided nephrotoxic agents. Resolved (3) Hypokalemia Conclusion/Plan: On presentation patient has hypokalemia with potassium of 2.9. This appears likely secondary to overdiuresis with Lasix and Zaroxolyn. Patient appeared to be dry so given IVFs and K replacement K up to 4.0 Resolved (4) Congestive heart failure (CHF) Conclusion/Plan: Patient has history of diastolic heart failure with right-sided heart failure and a preserved ejection fraction. Patient's BNP is elevated at 1314 with a mildly elevated troponin of 0.17 Patient appears to be dry on examination and lab work appears to support the patient is dehydrated as she has a decreased potassium and acute kidney injury. The patient does have mild pulmonary vascular congestion on the chest x-ray but it is not changed from before. Patient does not have crackles on examination. It is slightly difficult to get an accurate volume status with this patient given that she does have edema in her legs however I feel that she is intravascularly depleted and therefore we will give her some gentle IV hydration and hold her Lasix and Zaroxolyn while she is being treated for urinary tract infection. BNP down to 943 today Patient not SOA or hypoxic Seems to be stable Will stop zaroxyln once ready for discharge and place on aldactone as patient has cirrhosis of her liver according to abd us Qualifiers: Congestive heart failure type: diastolic Congestive heart failure chronicity: acute on chronic Qualified Code(s): I50.33 - Acute on chronic diastolic (congestive) heart failure (5) Atrial fibrillation Conclusion/Plan: Patient has history of atrial fibrillation is on anticoagulation with Pradaxa and rate controlled with digoxin and diltiazem On presentation patient's rate is well controlled Patient has a chads 2 score of 3 Continue anticoagulation Continue diltiazem and digoxin Monitor on telemetry HR uncontrolled increase dose of Dilt to 240 mg daily which was continued at discharge Qualifiers: Atrial fibrillation type: chronic Qualified Code(s): I48.2 - Chronic atrial fibrillation (6) Hyponatremia Conclusion/Plan: Patient has chronic hyponatremia which appears likely to be hypervolemic hyponatremia as the patient has chronic edema from right-sided heart failure. Monitored sodium Stable (7) Hyperbilirubinemia Conclusion/Plan: Patient's bilirubin is elevated at 1.6 she also has an alk phos that is elevated to 221 Abd ultrasound shows patient has cirrhosis which is likely causing her LE swelling Patient was placed on lasix and aldactone at discharge Patient does not need further work up given her age as she appears stable but a hepatitis panel was sent off and is pending (8) Hypothyroidism Conclusion/Plan: Patient has history of hypothyroidism Patient is on Synthroid at home we will continue her home dose of Synthroid TSH 5.22 Stable (9) Hypertension Conclusion/Plan: On presentation patient does have borderline blood pressure which is likely secondary to dehydration and infection We will monitor blood pressure closely We will continue the patient's diltiazem but we will hold Lasix and Zaroxolyn for now. BP improved with increasing Dilt dose and patient was discharged on lasix and aldactone Qualifiers: Hypertension type: essential hypertension Qualified Code(s): I10 - Essential (primary) hypertension - ALLERGIES Allergies/Adverse Reactions: Allergies Allergy/AdvReac Type Severity Reaction Status Date / Time Sulfa (Sulfonamide Allergy Intermediate Nausea Verified 10/30/16 08:44 Antibiotics) - MEDICATIONS Home Medications: Ambulatory Orders Medication Instructions Recorded Confirmed Dabigatran [Pradaxa] 75 mg PO BID 09/18/12 10/30/16 Digoxin [Lanoxin] 125 mcg PO DAILY 06/16/15 10/30/16 HYDROcod/ACETAM 5/325 [Somers 5/325] 1 - 2 tab PO Q4H PRN 06/16/15 10/30/16 Levothyroxine [Synthroid] 50 mcg PO QDAC 06/16/15 10/30/16 Ropinirole HCl 1 mg PO BID 06/16/15 10/30/16 Ropinirole HCl 2 mg PO QPM 06/16/15 10/30/16 Acetaminophen 650 mg PO Q4H PRN 09/05/16 10/30/16 Calcium Carbonate/Vitamin D3 1 tab ORAL BID 09/05/16 10/30/16 [Calcium 500-Vit D3 200 Tablet] Chlorhexidine Gluconate 15 ml MM DAILY 09/05/16 10/30/16 Cholecalciferol (Vitamin D3) 2,000 units ORAL BID 09/05/16 10/30/16 [Vitamin D3] Colchicine 0.6 mg PO BID PRN 09/05/16 10/30/16 Gabapentin 100 mg ORAL BID 09/05/16 10/30/16 Magnesium Hydroxide [Milk of 1,200 mg ORAL DAILY PRN 09/05/16 10/30/16 Magnesia] Nystatin 10/30/16 Cephalexin [Keflex] 250 mg PO Q6H #16 capsule 11/02/16 Furosemide [Lasix] 40 mg PO DAILY tablet 11/02/16 Nystatin [Nystop] 1 applic TOP BID bottle 11/02/16 Spironolactone [Aldactone] 25 mg PO DAILY tablet 11/02/16 diltiaZEM CD [Cardizem Cd] 240 mg PO DAILY capsule 11/02/16 hydrOXYzine PAMOATE [Vistaril] 25 mg PO QPM PRN #0 capsule 11/02/16 - PHYSICAL EXAM AT DISCHARGE General Appearance: positive: No acute distress, Alert Eyes Bilateral: positive: Normal inspection, PERRL, EOMI, No lid inflammation, Conjunctivae nml, No scleral icterus ENT: positive: ENT inspection nml, Pharynx nml, No signs of dehydration. negative: Purulent nasal drainage, Pharyngeal erythema, Oral lesions Neck: positive: Nml inspection, Thyroid nml, No JVD, Trachea midline. negative : Thyromegaly, Lymphadenopathy (R), Lymphadenopathy (L), Carotid bruit, Tracheal deviation Respiratory: positive: Chest non-tender, No respiratory distress, Breath sounds nml. negative: Wheezes, Rales, Rhonchi Cardiovascular: positive: No murmur, No gallop, Irregularly irregular Peripheral Pulses: positive: 2+ Abdomen: positive: Non-tender, No organomegaly, Nml bowel sounds, No distention. negative: Guarding, Rebound, Bruit Back: positive: Nml inspection. negative: CVA tenderness (R), CVA tenderness (L ) Skin: positive: Color nml, No rash, Warm. negative: Cyanosis, Pallor Extremities: positive: Non-tender, Full ROM, Nml appearance, Pedal edema ( Bilateral ) Neurologic/Psychiatric: positive: Oriented x3, CN's nml (2-12), Motor nml, Sensation nml, Mood/affect nml - LABS Result Diagrams: 11/02/16 06:12 11/02/16 06:12 Other Lab Results: Laboratory Results WBC 6.1 x10^3/uL (4.8-10.8) 11/02/16 06:12 RBC 3.94 10^6/uL (4.20-5.40) L 11/02/16 06:12 Hgb 12.2 g/dL (12.0-16.0) 11/02/16 06:12 Hct 36.7 % (37.0-47.0) L 11/02/16 06:12 MCV 93.1 fL (81.0-99.0) 11/02/16 06:12 MCH 31.1 pg (27.0-31.0) H 11/02/16 06:12 MCHC 33.4 g/dL (32.0-36.0) 11/02/16 06:12 RDW 16.2 % (12.0-15.0) H 11/02/16 06:12 Plt Count 122 10^3/uL (130-450) L 11/02/16 06:12 MPV 7.9 fL (7.9-10.8) 11/02/16 06:12 Neut # 4.3 10^3/uL (1.5-6.6) 11/02/16 06:12 Lymph # 0.8 10^3/uL (1.5-3.5) L 11/02/16 06:12 [place] # 0.7 10^3/uL (0.0-1.0) 11/02/16 06:12 Eos # 0.1 10^3/uL (0.0-0.7) 11/02/16 06:12 Baso # 0.1 10^3/uL (0.0-0.1) 11/02/16 06:12 Absolute Nucleated RBC 0.00 x10^3/uL 11/02/16 06:12 Nucleated RBCs 0.0 /100WBC 11/02/16 06:12 Sodium 136 mmol/L (135-145) 11/02/16 06:12 Potassium 4.4 mmol/L (3.5-5.0) 11/02/16 06:12 Chloride 102 mmol/L (101-111) 11/02/16 06:12 Carbon Dioxide 26 mmol/L (21-32) 11/02/16 06:12 Anion Gap 8.0 (6-13) 11/02/16 06:12 BUN 47 mg/dL (6-20) H 11/02/16 06:12 Creatinine 0.9 mg/dL (0.4-1.0) 11/02/16 06:12 Estimated GFR (MDRD) 59 (>89) L 11/02/16 06:12 Glucose 80 mg/dL (70-100) 11/02/16 06:12 Lactic Acid 1.2 mmol/L (0.5-2.2) 10/30/16 09:15 Calcium 8.8 mg/dL (8.5-10.3) 11/02/16 06:12 Phosphorus 2.4 mg/dL (2.5-4.6) L 11/02/16 06:12 Magnesium 1.9 mg/dL (1.7-2.8) 11/02/16 06:12 Total Bilirubin 1.6 mg/dL (0.2-1.0) H 11/02/16 06:12 AST 41 IU/L (10-42) 11/02/16 06:12 ALT 23 IU/L (10-60) 11/02/16 06:12 Alkaline Phosphatase 261 IU/L (42-121) H 11/02/16 06:12 Troponin I 0.17 ng/mL (<0.49) 10/30/16 09:15 B-Natriuretic Peptide 1446 pg/mL (5-100) H 11/02/16 06:12 Total Protein 7.4 g/dL (6.7-8.2) 11/02/16 06:12 Albumin 2.9 g/dL (3.2-5.5) L 11/02/16 06:12 Globulin 4.5 g/dL (2.1-4.2) H 11/02/16 06:12 Albumin/Globulin Ratio 0.6 (1.0-2.2) L 11/02/16 06:12 Lipase 48 U/L (22-51) 10/30/16 09:15 TSH 5.22 uIU/mL (0.34-5.60) 10/31/16 06:32 Urine Color YELLOW 10/30/16 09:30 Urine Clarity CLEAR (CLEAR) 10/30/16 09:30 Urine pH 7.0 PH (5.0-7.5) 10/30/16 09:30 Ur Specific [place] 1.010 (1.002-1.030) 10/30/16 09:30 Urine Protein NEGATIVE mg/dL (NEGATIVE) 10/30/16 09:30 Urine Glucose (UA) NEGATIVE mg/dL (NEGATIVE) 10/30/16 09:30 Urine Ketones NEGATIVE mg/dL (NEGATIVE) 10/30/16 09:30 Urine Occult Blood LARGE (NEGATIVE) H 10/30/16 09:30 Urine Nitrite POSITIVE (NEGATIVE) H 10/30/16 09:30 Urine Bilirubin NEGATIVE (NEGATIVE) 10/30/16 09:30 Urine Urobilinogen 0.2 (NORMAL) E.U./dL (NORMAL) 10/30/16 09:30 Ur Leukocyte Esterase LARGE (NEGATIVE) H 10/30/16 09:30 Urine RBC 6-10 /HPF (0-5) H 10/30/16 09:30 Urine WBC >25 /HPF (0-5) H 10/30/16 09:30 Urine WBC Clumps PRESENT 10/30/16 09:30 Ur Squamous Epith Cells RARE Squamous (<= Few) 10/30/16 09:30 Urine Bacteria Moderate /HPF (None Seen) H 10/30/16 09:30 Urine Mucus Few Strands 10/30/16 09:30 Ur Microscopic Review INDICATED 10/30/16 09:30 Urine Culture Comments INDICATED 10/30/16 09:30 Last Dose Date UNK 10/30/16 09:15 Last Dose Time UNK 10/30/16 09:15 Digoxin 0.9 ng/mL 10/30/16 09:15 Microbiology 10/30/16 09:30 Urine,Catheterized Urine Culture - Final Aerococcus Viridans 10/30/16 09:55 Blood Blood Culture - Preliminary NO GROWTH AFTER 2 DAYS 10/30/16 09:15 Blood - Right Arm Blood Culture - Preliminary NO GROWTH AFTER 2 DAYS - DIAGNOSTIC IMAGING Diagnostic Imaging Results: Final report reviewed Diagnostic Imaging Results Comments: Chest x-ray Impression: Possible mild pulmonary vascular congestion. Otherwise no radiographically apparent acute abnormality or significant change from prior. Abdominal ultrasound Impression: 1 heterogeneous/nodular liver suspicious for cirrhosis. 2. Mild ascites. Small bilateral pleural effusions. - FOLLOW UP Follow Up: Patient discharged to [facility] for rehab and will follow up with her primary care physician once discharged from rehab. - TIME SPENT Time Spent in Discharge (Minutes): 45
[2016-11-02 14:29] VITALS: BP 123/65
== END 2016-11-02 15:30 | DRG 689 ==
LOC: EDUNIT# → ED 08:36 → MS2 15:27
PROVIDERS: ADMIT Internal Medicine; ATTEND Internal Medicine
DX: N30.01 Acute cystitis with hematuria (principal); I50.33 Acute on chronic diastolic (congestive) heart failure; N17.9 Acute kidney failure, unspecified; R40.0 Somnolence; E87.1 Hypo-osmolality and hyponatremia; R17 Unspecified jaundice; E78.00 Pure hypercholesterolemia, unspecified; I48.2 Chronic atrial fibrillation; E87.6 Hypokalemia; I11.0 Hypertensive heart disease with heart failure; R32 Unspecified urinary incontinence; N28.9 Disorder of kidney and ureter, unspecified; K74.60 Unspecified cirrhosis of liver; E03.9 Hypothyroidism, unspecified; E78.5 Hyperlipidemia, unspecified; I25.10 Atherosclerotic heart disease of native coronary artery without angina pectoris; M10.9 Gout, unspecified; K21.9 Gastro-esophageal reflux disease without esophagitis; Z95.5 Presence of coronary angioplasty implant and graft; Z95.0 Presence of cardiac pacemaker; Z79.02 Long term (current) use of antithrombotics/antiplatelets; Z79.891 Long term (current) use of opiate analgesic; Z79.899 Other long term (current) drug therapy
CPT/HCPCS: 36415; 51701; 71010; 76700; 80053; 80074; 80162; 81001; 81003; 83605; 83690; 83735; 83880; 84100; 84443; 84484; 85025; 87040; 87086; 93005; 96361; 96374; 96375; 99285

== ENCOUNTER 2016-11-12 14:35 | Outpatient (CLI) | payer MEDICARE, MEDICAID ==
[2016-11-12 15:32] LABS: CALCIUM 9.3 mg/dL (8.5-10.3); CREATININE 1.3 mg/dL (0.4-1.0); POTASSIUM 5.4 mmol/L (3.5-5.0)
== END 2016-11-12 14:36 | disposition home or self-care (01) ==
LOC: LAB.R 14:35
DX: R79.89 Other specified abnormal findings of blood chemistry (principal)
CPT/HCPCS: 80048

== ENCOUNTER 2016-11-19 15:22 | Outpatient (CLI) | payer MEDICARE, MEDICAID ==
[2016-11-19 13:48] LABS: CREATININE 1.9 mg/dL (0.4-1.0)
[2016-11-19 14:09] LABS: CALCIUM 9.4 mg/dL (8.5-10.3); POTASSIUM 4.3 mmol/L (3.5-5.0)
== END 2016-11-19 15:23 | disposition home or self-care (01) ==
LOC: LAB.R 15:22
DX: I50.9 Heart failure, unspecified (principal)
CPT/HCPCS: 80048